=== PATIENT | female | born 1985 | race American Indian/Alaskan Native ===

== ENCOUNTER 2017-06-24 19:09 | Emergency (ER) | payer MEDICAID ==
[2017-06-24 19:20] VITALS: BP 171/112
[2017-06-24] MEDS ORDERED: TYLENOL ONE (19:28)
[2017-06-24] MEDS ORDERED: TYLENOL PO ONE (19:31)
[2017-06-24 19:59] LABS: Hematocrit 33.3 % (30.3-42.9); Hemoglobin 10.1 gm/dl (10.1-14.3); Mean Corpuscular HGB Conc 30 % (30-34); Mean Corpuscular Volume 77 fl (79-97); Red Blood Count 4.32 M/mm3 (3.65-5.03); Red Cell Distribution Width 17.4 % (13.2-15.2); White Blood Count 10.5 K/mm3 (4.5-11.0)
[2017-06-24 20:00] LABS: Mean Corpuscular Hemoglobin 24 pg (28-32)
[2017-06-24 20:01] LABS: Platelet Count 103 K/mm3 (140-440)
[2017-06-24 20:07] LABS: Anion Gap 16 mmol/L; BUN/Creatinine Ratio 22; Blood Urea Nitrogen 11 mg/dL (7-17); Calcium 8.9 mg/dL (8.4-10.2); Carbon Dioxide 21 mmol/L (22-30); Chloride 97.1 mmol/L (98-107); Glucose 148 mg/dL (65-100); Potassium 4.3 mmol/L (3.6-5.0); Sodium 130 mmol/L (137-145)
[2017-06-24 23:11] LABS: Bacteria,Urine 1+ /HPF (Negative); Bilirubin,Urine NEG (Negative); Blood,Urine MOD (Negative); Ketones,Urine NEG (Negative); Leukocyte Esterase,Urine SM (Negative); Mucus,Urine 3+ /HPF; Nitrite,Urine NEG (Negative); Urobilinogen,Urine < 2.0 mg/dL (<2.0)
== END 2017-06-24 22:11 | disposition left against medical advice (07) ==
LOC: ED 19:09
DX: S01.81XA Laceration without foreign body of other part of head, initial encounter (principal); M54.2 Cervicalgia; Z53.21 Procedure and treatment not carried out due to patient leaving prior to being seen by health care provider
CPT/HCPCS: 36415; 80048; 81001; 81025; 85027

== ENCOUNTER 2020-09-10 17:40 | Inpatient (IN) | payer MEDICAID ==
[2020-09-10] MEDS ORDERED: LACTATED RINGERS 1,000 ML ONE (19:56)
[2020-09-10] MEDS ORDERED: MAGNESIUM SULFATE 4 GM/100 ML BAG IV ONE ×2 (19:56→20:55)
[2020-09-10] MEDS ORDERED: MAGNESIUM SULFATE 40GM/1000ML 40 GM/1,000 ML BAG IV ONE (19:56)
[2020-09-10] MEDS: hydrALAZINE 20 MG/1 ML INJ IV PRN ×2 (20:17→21:05)
[2020-09-10] MEDS: LACTATED RINGERS 1,000 ML IV SCH (20:17)
[2020-09-10] MEDS: BETAMET ACET/BETAMET NA PH 6 MG/ML INJ 5 ML MDV IM SCH (20:18)
[2020-09-10] MEDS: MAGNESIUM SULFATE 40GM/1000ML 40 GM/1,000 ML BAG IV SCH (20:42)
[2020-09-10 22:00] LABS: Basophils % (Auto) 0.2 % (0.0-1.8); Eosinophils # (Auto) 0.1 K/mm3 (0.0-0.4); Eosinophils % (Auto) 0.5 % (0.0-4.3); Hematocrit 35.6 % (30.3-42.9); Hemoglobin 11.6 gm/dl (10.1-14.3); Lymphocytes # (Auto) 2.3 K/mm3 (1.2-5.4); Lymphocytes % (Auto) 21.6 % (13.4-35.0); Mean Corpuscular HGB Conc 33 % (30-34); Mean Corpuscular Volume 85 fl (79-97); Monocytes # (Auto) 0.6 K/mm3 (0.0-0.8); Monocytes % (Auto) 5.2 % (0.0-7.3); Platelet Count 181 K/mm3 (140-440); Red Blood Count 4.19 M/mm3 (3.65-5.03)
[2020-09-10 22:43] LABS: Alanine Aminotransferase 7 units/L (7-56); Uric Acid 4.4 mg/dL (3.5-7.6)
[2020-09-11] MEDS: hydrALAZINE 20 MG/1 ML INJ IV PRN ×3 (00:18→21:13)
[2020-09-11] MEDS ORDERED: ACETAMINOPHEN 325 MG TAB PO ONE (03:15)
--- NOTE | 2020-09-11 08:25 | History and Physical Report ---
History of Present Illness Date of examination: 09/11/20 Date of admission: 09/10/20 19:45 Chief complaint: Sent from [facility] for elevated BP History of present illness: Pt is a 35 yo at 29w1d EGA who presents per [facility] for r/o preeclampsia. She had severe range BP at [facility] yesterday, and has been receiving magnesium sulfate infusion and undergoing a 24 hour urine collection. She received rescue Hydralazine overnight. She denied headache yesterday, but now reports headache due to hunger. She denies scotomata, RUQ pain, or upper extremity swelling. She has received care with [facility]. Her course has been complicated by Chlamydia with negative ORTIZ, and anaphylaxis caused by [employer] chicken noodle soup 3 weeks ago. She has a history of preeclampsia with her previous (twins). She reports positive movement and denies LOF, contractions, or vaginal bleeding. 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) Family/Genetic History: diabetes Social history: lives with family (partnered) - Obstetrical History Expected Date of Delivery: 11/26/20 Actual Gestation: 29 Week(s) 1 Day(s) : 5 Para: 1 (twins) Hx # Term Pregnancies: 1 Number of Pregnancies: 0 Spontaneous Abortions: 0 Induced : 3 Number of Living Children: 2 Medications and Allergies Allergies Allergy/AdvReac Type Severity Reaction Status Date / Time No Known Allergies Allergy Verified 09/05/13 15:49 Home Medications Medication Instructions Recorded Confirmed Last Taken Type Plus Tablet 1 tab PO DAILY 09/11/20 09/11/20 09/10/20 08:00 History Active Meds: Active Medications Betamethasone Acet/Betameth SodPhos (Betamet Acet/Betamet Na Ph 6 Mg/Ml Inj 5 Ml Mdv) 12 mg IM Q24H NEGRITA Stop: 09/11/20 20:01 Last Admin: 09/10/20 20:18 Dose: 12 mg Documented by: Hydralazine HCl (Hydralazine 20 Mg/1 Ml Inj) 5 mg IV Q30MIN PRN PRN Reason: Blood Pressure Last Admin: 09/11/20 00:18 Dose: 5 mg Documented by: Magnesium Sulfate (Magnesium Sulfate 40gm/1000ml) 40 gm in 1,000 mls @ 50 mls/hr IV DIRECT NEGRITA Last Admin: 09/10/20 20:42 Dose: 2 gm/hr, 50 mls/hr Documented by: Lactated Ringer's (Lactated Ringers) 1,000 mls @ 75 mls/hr IV DIRECT NEGRITA Last Admin: 09/10/20 20:17 Dose: 75 mls/hr Documented by: Multivitamins/Iron/Calcium ( [id number]-Dc Fumarate-Folic Acid Vit Tab) 1 each PO QDAY NEGRITA Review of Systems All systems: negative Ears, nose, mouth and throat: headache Cardiovascular: high blood pressure, no chest pain, no edema Respiratory: no shortness of breath Genitourinary: no vaginal bleeding, no leakage of fluid, no genital sores, no c ontractions - Vital Signs Vital signs: Vital Signs Pulse BP 88 182/102 09/10/20 18:28 09/10/20 18:28 Temp Pulse Resp BP Pulse Ox 98.9 F 104 H 20 168/88 89 09/11/20 06:37 09/11/20 08:15 09/11/20 06:37 09/11/20 08:01 09/11/20 08:15 - Physical Exam Abdomen: Positive: soft. Negative: distention, tenderness, guarding Uterus: Positive: enlarged (gravid) Extremities: Positive: normal - Obstetrical FHR: category 1 Uterine Contraction Monitor Mode: External Uterine Contraction Pattern: Absent Results Result Diagrams: 09/10/20 21:18 09/10/20 21:18 Abnormal lab results 09/10/20 09/10/20 09/11/20 Range/Units 21:18 21:18 03:31 Seg Neutrophils % 72.5 H (40.0-70.0) % Seg Neutrophils # 7.9 H (1.8-7.7) K/mm3 Creatinine 0.4 L (0.6-1.2) mg/dL Magnesium 4.70 H (1.7-2.3) mg/dL All other labs normal. Assessment and Plan A: 35 yo at 29w1d EGA Gestational hypertension, r/o preeclampsia P: Magnesium infusing Initiate Labetalol 100mg BID Continue 24 hour urine collection Closely monitor clinical status Carly Man MD aware of patient
[2020-09-11] MEDS: LACTATED RINGERS 1,000 ML IV SCH (09:14)
[2020-09-11] MEDS: PRENATAL VIT27-FE FUMARATE-FOLIC ACID VIT TAB PO SCH (09:15)
[2020-09-11] MEDS: ACETAMINOPHEN 325 MG TAB PO PRN ×2 (10:12→22:01)
--- NOTE | 2020-09-11 19:08 | Progress Note ---
Assessment and Plan 35 yo at 29w1d EGA Gestational hypertension, r/o preeclampsia - Patient Problems (1) Elevated blood pressure complicating , antepartum Onset Date: 09/05/13 Current Visit: No Status: Acute Plan to address problem: gHTN vs Preeclampsia -continue 24 h urine collection -continue mag -Beta 2 this pm -labetalol adjusted to 200 BID, continue to monitor Subjective - Subjective Interval history: Denies ARTHUR/RUQ pain/changes to vision. No new complaints. Objective - Vital Signs Vital Signs: Vital Signs - 12hr 09/11/20 09/11/20 09/11/20 07:08 07:10 07:13 Pulse Rate 96 H 96 H 96 H Blood Pressure 157/96 O2 Sat by Pulse 99 98 Oximetry 09/11/20 09/11/20 09/11/20 07:14 07:18 07:20 Pulse Rate 107 H 100 H Blood Pressure O2 Sat by Pulse 86 98 90 Oximetry 09/11/20 09/11/20 09/11/20 07:23 07:28 07:31 Pulse Rate 99 H 102 H 96 H Blood Pressure 157/91 O2 Sat by Pulse 97 98 Oximetry 09/11/20 09/11/20 09/11/20 07:33 07:37 07:38 Pulse Rate 98 H 97 H 97 H Blood Pressure O2 Sat by Pulse 98 94 97 Oximetry 09/11/20 09/11/20 09/11/20 07:43 07:48 07:49 Pulse Rate 94 H 96 H 97 H Blood Pressure O2 Sat by Pulse 88 97 87 Oximetry 09/11/20 09/11/20 09/11/20 07:53 07:57 07:59 Pulse Rate 95 H 97 H 96 H Blood Pressure O2 Sat by Pulse 98 93 94 Oximetry 09/11/20 09/11/20 09/11/20 08:01 08:02 08:05 Pulse Rate 100 H 94 H 94 H Blood Pressure 168/88 O2 Sat by Pulse 93 95 Oximetry 09/11/20 09/11/20 09/11/20 08:08 08:10 08:14 Pulse Rate 97 H 94 H Blood Pressure O2 Sat by Pulse 87 96 90 Oximetry 09/11/20 09/11/20 09/11/20 08:15 08:20 08:24 Pulse Rate 104 H 105 H 107 H Blood Pressure O2 Sat by Pulse 89 97 92 Oximetry 09/11/20 09/11/20 09/11/20 08:25 08:30 08:32 Pulse Rate 101 H 114 H 98 H Blood Pressure 149/90 O2 Sat by Pulse 95 90 Oximetry 09/11/20 09/11/20 09/11/20 08:35 08:40 08:45 Pulse Rate 92 H 93 H 88 Blood Pressure O2 Sat by Pulse 98 97 97 Oximetry 09/11/20 09/11/20 09/11/20 08:48 08:50 08:53 Pulse Rate 65 99 H 95 H Blood Pressure O2 Sat by Pulse 88 98 93 Oximetry 09/11/20 09/11/20 09/11/20 08:55 09:00 09:01 Pulse Rate 95 H 95 H 91 H Blood Pressure 153/95 O2 Sat by Pulse 97 94 Oximetry 09/11/20 09/11/20 09/11/20 09:05 09:10 09:11 Pulse Rate 90 91 H 86 Blood Pressure O2 Sat by Pulse 96 97 75 L Oximetry 09/11/20 09/11/20 09/11/20 09:14 09:15 09:16 Pulse Rate 96 H 95 H Blood Pressure 153/95 O2 Sat by Pulse 94 91 Oximetry 09/11/20 09/11/20 09/11/20 09:20 09:21 09:27 Pulse Rate 96 H 100 H Blood Pressure O2 Sat by Pulse 89 85 98 Oximetry 09/11/20 09/11/20 09/11/20 09:29 09:32 09:37 Pulse Rate 104 H 80 100 H Blood Pressure O2 Sat by Pulse 88 82 L 99 Oximetry 09/11/20 09/11/20 09/11/20 09:39 09:42 09:48 Pulse Rate 97 H 98 H 68 Blood Pressure O2 Sat by Pulse 92 98 79 L Oximetry 09/11/20 09/11/20 09/11/20 09:53 09:56 09:58 Pulse Rate 96 H 99 H 94 H Blood Pressure O2 Sat by Pulse 90 94 97 Oximetry 09/11/20 09/11/20 09/11/20 10:01 10:03 10:08 Pulse Rate 96 H 98 H 96 H Blood Pressure 140/90 O2 Sat by Pulse 85 93 Oximetry 02/17/21 02/17/21 02/17/21 10:13 10:14 10:18 Pulse Rate 98 H 97 H Blood Pressure O2 Sat by Pulse 91 81 L 86 Oximetry 09/11/20 09/11/20 09/11/20 10:19 10:23 10:28 Pulse Rate 97 H 98 H Blood Pressure O2 Sat by Pulse 86 96 97 Oximetry 09/11/20 09/11/20 09/11/20 10:33 10:38 10:43 Pulse Rate 91 H 88 90 Blood Pressure O2 Sat by Pulse 99 97 97 Oximetry 09/11/20 09/11/20 09/11/20 10:48 10:53 10:58 Pulse Rate 89 87 89 Blood Pressure O2 Sat by Pulse 97 97 97 Oximetry 09/11/20 09/11/20 09/11/20 11:01 11:03 11:08 Pulse Rate 92 H 88 91 H Blood Pressure 137/82 O2 Sat by Pulse 97 97 Oximetry 09/11/20 09/11/20 09/11/20 11:13 11:14 11:18 Pulse Rate 91 H 102 H 89 Blood Pressure O2 Sat by Pulse 97 90 97 Oximetry 09/11/20 09/11/20 09/11/20 11:23 11:28 11:33 Pulse Rate 91 H 89 90 Blood Pressure O2 Sat by Pulse 96 95 96 Oximetry 09/11/20 09/11/20 09/11/20 11:38 11:43 11:48 Pulse Rate 91 H 90 89 Blood Pressure O2 Sat by Pulse 96 95 95 Oximetry 09/11/20 09/11/20 09/11/20 11:53 11:58 12:01 Pulse Rate 99 H 98 H 100 H Blood Pressure 142/98 O2 Sat by Pulse 98 99 Oximetry 09/11/20 09/11/20 09/11/20 12:03 12:08 12:13 Pulse Rate 98 H 104 H 97 H Blood Pressure O2 Sat by Pulse 99 98 98 Oximetry 09/11/20 09/11/20 09/11/20 12:18 12:23 12:28 Pulse Rate 105 H 90 93 H Blood Pressure O2 Sat by Pulse 98 98 97 Oximetry 09/11/20 09/11/20 09/11/20 12:33 12:38 12:43 Pulse Rate 91 H 90 107 H Blood Pressure O2 Sat by Pulse 97 97 97 Oximetry 09/11/20 09/11/20 09/11/20 12:48 12:53 12:58 Pulse Rate 95 H 98 H 92 H Blood Pressure O2 Sat by Pulse 98 98 97 Oximetry 09/11/20 09/11/20 09/11/20 13:01 13:03 13:08 Pulse Rate 101 H 89 91 H Blood Pressure 130/82 O2 Sat by Pulse 97 98 Oximetry 09/11/20 09/11/20 09/11/20 13:13 13:18 13:23 Pulse Rate 91 H 92 H 91 H Blood Pressure O2 Sat by Pulse 97 97 97 Oximetry 09/11/20 09/11/20 09/11/20 13:25 13:28 13:33 Pulse Rate 105 H 90 89 Blood Pressure O2 Sat by Pulse 92 97 97 Oximetry 09/11/20 09/11/20 09/11/20 13:38 13:43 13:48 Pulse Rate 91 H 90 88 Blood Pressure O2 Sat by Pulse 97 97 97 Oximetry 09/11/20 09/11/20 09/11/20 13:53 13:58 14:01 Pulse Rate 91 H 90 92 H Blood Pressure 137/84 O2 Sat by Pulse 97 97 Oximetry 09/11/20 09/11/20 09/11/20 14:03 14:08 14:13 Pulse Rate 89 88 96 H Blood Pressure O2 Sat by Pulse 97 98 99 Oximetry 09/11/20 09/11/20 09/11/20 14:18 14:23 14:28 Pulse Rate 98 H 98 H 94 H Blood Pressure O2 Sat by Pulse 99 98 99 Oximetry 09/11/20 09/11/20 09/11/20 14:33 14:34 14:38 Pulse Rate 94 H 100 H 96 H Blood Pressure O2 Sat by Pulse 98 84 99 Oximetry 09/11/20 09/11/20 09/11/20 14:43 14:48 14:53 Pulse Rate 94 H 96 H 95 H Blood Pressure O2 Sat by Pulse 98 98 99 Oximetry 09/11/20 09/11/20 09/11/20 14:58 15:01 15:03 Pulse Rate 98 H 96 H 98 H Blood Pressure 140/89 O2 Sat by Pulse 100 99 Oximetry 09/11/20 09/11/20 09/11/20 15:08 15:13 15:18 Pulse Rate 96 H 99 H 94 H Blood Pressure O2 Sat by Pulse 98 98 99 Oximetry 09/11/20 09/11/20 09/11/20 15:23 15:28 15:33 Pulse Rate 96 H 94 H 92 H Blood Pressure O2 Sat by Pulse 99 99 99 Oximetry 09/11/20 09/11/20 09/11/20 15:38 15:43 15:48 Pulse Rate 93 H 94 H 92 H Blood Pressure O2 Sat by Pulse 98 99 98 Oximetry 09/11/20 09/11/20 09/11/20 15:53 15:58 16:01 Pulse Rate 94 H 103 H 89 Blood Pressure 158/94 O2 Sat by Pulse 97 99 Oximetry 09/11/20 09/11/20 09/11/20 16:03 16:08 16:12 Pulse Rate 92 H 105 H 69 Blood Pressure O2 Sat by Pulse 98 97 92 Oximetry 09/11/20 09/11/20 09/11/20 16:13 16:18 16:21 Pulse Rate 89 92 H 107 H Blood Pressure O2 Sat by Pulse 98 99 84 Oximetry 09/11/20 09/11/20 09/11/20 16:23 16:28 16:33 Pulse Rate 93 H 93 H 93 H Blood Pressure O2 Sat by Pulse 99 99 99 Oximetry 09/11/20 09/11/20 09/11/20 16:38 16:41 16:43 Pulse Rate 110 H 97 H 100 H Blood Pressure O2 Sat by Pulse 98 85 98 Oximetry 09/11/20 09/11/20 09/11/20 16:48 16:53 16:56 Pulse Rate 99 H 95 H 99 H Blood Pressure O2 Sat by Pulse 93 99 88 Oximetry 09/11/20 09/11/20 09/11/20 16:58 17:01 17:02 Pulse Rate 102 H 95 H 56 L Blood Pressure 161/88 O2 Sat by Pulse 92 88 Oximetry 09/11/20 09/11/20 09/11/20 17:03 17:08 17:09 Pulse Rate 83 99 H 64 Blood Pressure O2 Sat by Pulse 83 L 99 68 L Oximetry 09/11/20 09/11/20 09/11/20 17:10 17:13 17:16 Pulse Rate 95 H 109 H 84 Blood Pressure 159/87 O2 Sat by Pulse 99 85 Oximetry 09/11/20 09/11/20 09/11/20 17:18 17:22 17:23 Pulse Rate 118 H 83 Blood Pressure O2 Sat by Pulse 99 80 L 86 Oximetry 09/11/20 09/11/20 09/11/20 17:27 17:29 17:34 Pulse Rate 90 111 H 101 H Blood Pressure O2 Sat by Pulse 94 94 96 Oximetry 09/11/20 09/11/20 09/11/20 17:36 17:39 17:44 Pulse Rate 112 H 107 H 99 H Blood Pressure O2 Sat by Pulse 87 93 95 Oximetry 09/11/20 09/11/20 09/11/20 17:49 17:54 17:55 Pulse Rate 99 H 100 H 99 H Blood Pressure O2 Sat by Pulse 96 96 89 Oximetry 09/11/20 09/11/20 09/11/20 17:59 18:04 18:06 Pulse Rate 104 H 100 H 104 H Blood Pressure O2 Sat by Pulse 95 96 93 Oximetry 09/11/20 09/11/20 09/11/20 18:09 18:11 18:14 Pulse Rate 103 H 101 H 102 H Blood Pressure O2 Sat by Pulse 96 94 90 Oximetry 09/11/20 09/11/20 09/11/20 18:15 18:17 18:19 Pulse Rate 101 H 105 H 99 H Blood Pressure 162/100 O2 Sat by Pulse 93 91 Oximetry 09/11/20 09/11/20 09/11/20 18:21 18:24 18:26 Pulse Rate 97 H 99 H 97 H Blood Pressure 152/102 149/92 O2 Sat by Pulse 93 Oximetry 09/11/20 09/11/20 09/11/20 18:29 18:31 18:34 Pulse Rate 87 94 H 99 H Blood Pressure 157/100 O2 Sat by Pulse 82 L 92 Oximetry 09/11/20 09/11/20 09/11/20 18:36 18:39 18:41 Pulse Rate 97 H 104 H 97 H Blood Pressure 151/96 158/98 O2 Sat by Pulse 91 95 94 Oximetry 09/11/20 09/11/20 09/11/20 18:44 18:46 18:49 Pulse Rate 95 H 93 H 100 H Blood Pressure 156/102 O2 Sat by Pulse 95 97 Oximetry 09/11/20 09/11/20 09/11/20 18:51 18:54 18:56 Pulse Rate 96 H 97 H 102 H Blood Pressure 159/105 153/100 O2 Sat by Pulse 94 95 94 Oximetry 09/11/20 09/11/20 09/11/20 18:59 19:01 19:04 Pulse Rate 97 H 108 H 102 H Blood Pressure 151/90 151/90 O2 Sat by Pulse 96 93 97 Oximetry - Exam Breasts: deferred Cardiovascular: Regular rate Lungs: Clear to auscultation Abdomen: Present: normal appearance Uterus: Present: normal FHR: category 1 Uterine Contraction Pattern: Absent - Labs Labs: Abnormal Labs 09/10/20 09/10/20 09/11/20 21:18 21:18 03:31 Seg Neutrophils % 72.5 H Seg Neutrophils # 7.9 H Creatinine 0.4 L Magnesium 4.70 H 09/11/20 09:24 Seg Neutrophils % Seg Neutrophils # Creatinine Magnesium 5.40 H Laboratory Results - last 24 hr 09/10/20 09/10/20 09/11/20 21:18 21:18 03:31 WBC 10.9 RBC 4.19 Hgb 11.6 Hct 35.6 MCV 85 MCH 28 MCHC 33 RDW 15.0 Plt Count 181 Lymph % (Auto) 21.6 [place] % (Auto) 5.2 Eos % (Auto) 0.5 Baso % (Auto) 0.2 Lymph # (Auto) 2.3 [place] # (Auto) 0.6 Eos # (Auto) 0.1 Baso # (Auto) 0.0 Seg Neutrophils % 72.5 H Seg Neutrophils # 7.9 H Creatinine 0.4 L Estimated GFR > 60 Uric Acid 4.4 Magnesium 4.70 H AST 13 ALT 7 Coronavirus (PCR) Blood Type Antibody Screen 09/11/20 09/11/20 09/11/20 03:31 09:20 09:24 WBC RBC Hgb Hct MCV MCH MCHC RDW Plt Count Lymph % (Auto) [place] % (Auto) Eos % (Auto) Baso % (Auto) Lymph # (Auto) [place] # (Auto) Eos # (Auto) Baso # (Auto) Seg Neutrophils % Seg Neutrophils # Creatinine Estimated GFR Uric Acid Magnesium 5.40 H AST ALT Coronavirus (PCR) Negative Blood Type A POSITIVE Antibody Screen Negative
[2020-09-11] MEDS: BETAMET ACET/BETAMET NA PH 6 MG/ML INJ 5 ML MDV IM SCH (21:14)
[2020-09-12] MEDS: ACETAMINOPHEN 325 MG TAB PO PRN ×3 (06:18→19:18)
[2020-09-12] MEDS: PRENATAL VIT27-FE FUMARATE-FOLIC ACID VIT TAB PO SCH (10:30)
[2020-09-12] MEDS: MAGNESIUM SULFATE 40GM/1000ML 40 GM/1,000 ML BAG IV SCH (12:02)
[2020-09-12] MEDS: LACTATED RINGERS 1,000 ML IV SCH (12:03)
--- NOTE | 2020-09-12 13:11 | Consultation ---
History of Present Illness Consult date: 09/12/20 Requesting physician: ERIWN BARROSO Reason for consult: gestational hypertension History of present illness: As you are aware, this is a 35-year-old para 1032 who is currently at 29 weeks 2 day gestation based on an GLADYS of 12/01/20 . This is a patient that has NO KNOWN history of chronic hypertension. Patient previously presented to [facility] on September 10, 2020 and was noted to have elevated blood pressures at 157/105. Patient was referred to [facility] to rule out gestational hypertension Based on her gestational age we would recommend steroids and magnesium sulfate it blood pressure remains elevated for eclampsia prophylaxis.. CURRENT PRESENTATION: Patient was hospitalized with elevated blood pressure however she did not have complaints of headache and dizziness. On presentation she had elevated blood pressure have been labile (see below) Her previous 24 hour urine is NOT AVAILABLE. Her P/C ratio NOT AVAILABLE. Her current 24 hour urine is PENDING. (due at 9 PM). Presently, she DENIES headache, dizziness or blurred vision. PAST OBSTETRICAL HISTORY: See report in patients chart. 2014: Twins at term (37 weeks) complicated by preeclampsia. BW-A: 5 pounds BW-B: 6 pounds. VTOP x 3 PAST MEDICAL HISTORY: Patient DENIES hypertension, diabetes or asthma . PHYSICAL EXAM FINDINGS: Vitals: BP as listed, pulse regular, respiration-normal General appearance: No apparent distress and easily conversant Lungs: Clear to auscultation Cardiovascular: regular rate and rhytym, Abdomen: Gravid, soft, nontender, no palpable organomegaly Extremities: No cyanosis and no edema. [facility] ULTRASOUND: See report in chart. [facility] ULTRASOUND 09/10/20 EFW 1188 g (2 lbs. 10 oz., 34th percentile,) Biophysical profile 03/02 ADMISSION BLOOD PRESSURE: 154/105 RECENT BLOOD PRESSURE VALUES: 137/80, 125/74 CURRENT MEDICATIONS: Betamethasone (suggested) magnesium sulfate (suggested) AVAILABLE LABS: WBC: 10.9 HGB: 11.6 HCT: 35.6 PLT: 181 AST: 13 ALT: 7 Most recent 24 hour urine : PENDING. Past History Past Medical History: other (preeclampsia) Past Surgical History: other (ankle surgery) BOOKY History: chlamydia (this , negative ORTIZ) Family/Genetic History: diabetes - Obstetrical History : 5 Medications and Allergies Allergies Allergy/AdvReac Type Severity Reaction Status Date / Time No Known Allergies Allergy Verified 09/05/13 15:49 Home Medications Medication Instructions Recorded Confirmed Last Taken Type Plus Tablet 1 tab PO DAILY 09/11/20 09/11/20 09/10/20 08:00 History Active Meds: Active Medications Acetaminophen (Acetaminophen 325 Mg Tab) 650 mg PO Q6H PRN PRN Reason: Pain, Mild (1-3) Last Admin: 09/12/20 06:18 Dose: 650 mg Documented by: Hydralazine HCl (Hydralazine 20 Mg/1 Ml Inj) 5 mg IV Q30MIN PRN PRN Reason: Blood Pressure Last Admin: 09/11/20 21:13 Dose: 5 mg Documented by: Magnesium Sulfate (Magnesium Sulfate 40gm/1000ml) 40 gm in 1,000 mls @ 50 mls/hr IV DIRECT NEGRITA Last Admin: 09/12/20 12:02 Dose: 2 gm/hr, 50 mls/hr Documented by: Lactated Ringer's (Lactated Ringers) 1,000 mls @ 75 mls/hr IV DIRECT NEGRITA Last Admin: 09/12/20 12:03 Dose: 75 mls/hr Documented by: Labetalol HCl (Labetalol 100 Mg Tab) 300 mg PO BID [facility] Last Admin: 09/12/20 10:30 Dose: 300 mg Documented by: Multivitamins/Iron/Calcium ( [id number] Fumarate-Folic Acid Vit Tab) 1 each PO QDAY [facility] Last Admin: 09/12/20 10:30 Dose: 1 each Documented by: - Vital Signs Vital signs: Vital Signs Pulse BP 88 182/102 09/10/20 18:28 09/10/20 18:28 Temp Pulse Resp BP Pulse Ox 98.4 F 82 16 128/76 97 09/11/20 19:01 09/12/20 13:07 09/11/20 19:01 09/12/20 12:52 09/12/20 13:07 Results Result Diagrams: 09/10/20 21:18 09/10/20 21:18 Abnormal lab results 09/12/20 Range/Units 09:44 Magnesium 5.70 H (1.7-2.3) mg/dL All other labs normal. Assessment and Plan ASSESSMENT IUP at 28 weeks 4 day gestation. Currently admitted with gestational hypertension Admitted with elevated blood pressure without headache. 24 hour urine PENDING. Improved blood pressure on bed rest. We recommend delivery at 37 weeks or earlier based on clinical parameters RECOMMENDATIONS: 1. We would recommend continued inpatient management for this patient. 2. I reviewed todays ultrasound. 3. Follow-up her current 24 hour urine. 4. We agree with magnesium sulfate for neuroprotection. 5. Steroids for lung maturity have been given during last visit. 6. Please facilitate a neonatology consultation. 7. At present; there is NO indication for delivery; however, I would monitor closely for the signs and symptoms of severe preeclampsia noted below. 8. At 28+ weeks gestation; it would appear that there is limited benefit to an expectant management protocol to prolong gestation in order to improve outcome without increasing maternal morbidity. 9. In a patient with MILD preeclampsia we recommend DELIVERY at 37 weeks. 10. In a patient with SEVERE preeclampsia we recommend DELIVERY either AT DIAGNOSIS or at 34 weeks gestation. ? Reference: REFERENCE: Medically indicated late- and early-term deliveries. Committee Opinion No. [id number]. [employer]. Obstet Gynecol 2013;121:01650. 11. The indications for discontinuation of expectant management and DELIVERY in this patient would include ANY of the following: heart rate abnormalities, (ie, bradycardia , repetitive late or variable decelerations) Significant new onset proteinuria Thrombocytopenia Hemolysis, Elevation in liver function tests Blood pressure that is very labile or poorly controlled with reasonable doses of intravenous labetalol Symptoms of severe pre-eclampsia epigastric discomfort, headache, dizzine ss, blurred vision, RUQ pain, seizure. Standard obstetrical indications 12. If is conceivable; that if her 24 hour urine is completed, and she remains asymptomatic and normotensive that she may be a candidate for discharge home and outpatient follow-up until ~ 37 weeks. Thank you for allowing us to participate in the care of this patient. We look forward to the opportunity to assist in her continued management. If you have any questions, we may be reached [phone]. Daryl Richey M.D
[2020-09-12 13:50] LABS: Creatinine,Urine 36.5 mg/dL (0.1-20.0)
[2020-09-13] MEDS: LACTATED RINGERS 1,000 ML IV SCH (01:07)
[2020-09-13] MEDS: ACETAMINOPHEN 325 MG TAB PO PRN (01:27)
--- NOTE | 2020-09-13 07:33 | Progress Note ---
Assessment and Plan A: IUP at 29w3d Preeclampsia without severe features; blood pressures stable on labetalol 300 mg PO BID Morbid Obesity P: Plan to discharge patient home with follow up next week in office and with M. Subjective - Subjective Date of service: 09/13/20 Principal diagnosis: IUP at 29w3d, Rule out preeclampsia Interval history: Pt without complaints overnight. 24 hour total urine protein 1575 mg confirming diagnosis of preeclampsia without severe features at this time. Patient reports: movement normal, no new complaints, no loss of fluid, no vaginal bleeding, no contractions Objective - Vital Signs Vital Signs: Vital Signs - 12hr 09/12/20 09/12/20 09/12/20 19:36 19:40 19:41 Temperature 98.7 F Pulse Rate 87 92 H 87 Respiratory 16 Rate Blood Pressure 138/88 Blood Pressure 138/88 [Left] O2 Sat by Pulse 98 98 Oximetry 09/12/20 09/12/20 09/12/20 19:42 19:46 19:51 Temperature Pulse Rate 89 89 Respiratory 16 Rate Blood Pressure Blood Pressure [Left] O2 Sat by Pulse 97 98 96 Oximetry 09/12/20 09/12/20 09/12/20 19:56 20:01 20:06 Temperature Pulse Rate 88 87 87 Respiratory Rate Blood Pressure Blood Pressure [Left] O2 Sat by Pulse 98 97 97 Oximetry 09/12/20 09/12/20 09/12/20 20:11 20:16 20:21 Temperature Pulse Rate 86 88 82 Respiratory Rate Blood Pressure Blood Pressure [Left] O2 Sat by Pulse 97 97 96 Oximetry 09/12/20 09/12/20 09/12/20 20:22 20:26 20:31 Temperature Pulse Rate 81 84 84 Respiratory Rate Blood Pressure 154/89 Blood Pressure [Left] O2 Sat by Pulse 96 96 Oximetry 09/12/20 09/12/20 09/12/20 20:36 20:41 20:46 Temperature Pulse Rate 83 86 91 H Respiratory Rate Blood Pressure Blood Pressure [Left] O2 Sat by Pulse 96 96 97 Oximetry 09/12/20 09/12/20 09/12/20 20:51 20:52 20:56 Temperature Pulse Rate 87 85 91 H Respiratory Rate Blood Pressure 156/85 Blood Pressure [Left] O2 Sat by Pulse 97 98 Oximetry 09/12/20 09/12/20 09/12/20 21:01 21:06 21:11 Temperature Pulse Rate 85 86 87 Respiratory Rate Blood Pressure Blood Pressure [Left] O2 Sat by Pulse 98 98 98 Oximetry 09/12/20 09/12/20 09/12/20 21:16 21:53 21:59 Temperature Pulse Rate 89 85 85 Respiratory Rate Blood Pressure 158/97 158/97 Blood Pressure [Left] O2 Sat by Pulse 98 Oximetry 09/12/20 09/12/20 09/12/20 22:13 22:18 22:22 Temperature Pulse Rate 87 96 H 87 Respiratory Rate Blood Pressure 140/83 Blood Pressure [Left] O2 Sat by Pulse 98 99 Oximetry 09/12/20 09/12/20 09/12/20 22:23 22:28 22:33 Temperature Pulse Rate 86 88 89 Respiratory Rate Blood Pressure Blood Pressure [Left] O2 Sat by Pulse 98 99 99 Oximetry 09/12/20 09/12/20 09/12/20 22:38 22:43 22:48 Temperature Pulse Rate 91 H 93 H 91 H Respiratory Rate Blood Pressure Blood Pressure [Left] O2 Sat by Pulse 98 98 98 Oximetry 09/12/20 09/12/20 09/13/20 23:22 23:52 00:22 Temperature Pulse Rate 79 92 H 88 Respiratory Rate Blood Pressure 138/85 136/94 150/89 Blood Pressure [Left] O2 Sat by Pulse Oximetry 09/13/20 09/13/20 09/13/20 00:52 01:22 01:52 Temperature Pulse Rate 87 90 86 Respiratory Rate Blood Pressure 143/94 148/90 139/83 Blood Pressure [Left] O2 Sat by Pulse Oximetry 09/13/20 09/13/20 09/13/20 02:22 02:52 03:00 Temperature 98.5 F Pulse Rate 91 H 85 Respiratory Rate Blood Pressure 144/87 140/85 Blood Pressure [Left] O2 Sat by Pulse Oximetry 09/13/20 09/13/20 09/13/20 03:22 03:52 04:22 Temperature Pulse Rate 79 87 88 Respiratory Rate Blood Pressure 134/77 127/74 124/75 Blood Pressure [Left] O2 Sat by Pulse Oximetry 09/13/20 09/13/20 09/13/20 04:52 05:22 05:52 Temperature Pulse Rate 83 77 84 Respiratory Rate Blood Pressure 125/78 132/76 138/75 Blood Pressure [Left] O2 Sat by Pulse Oximetry 09/13/20 09/13/20 09/13/20 06:22 06:52 07:22 Temperature Pulse Rate 77 77 88 Respiratory Rate Blood Pressure 142/87 126/67 147/90 Blood Pressure [Left] O2 Sat by Pulse Oximetry 09/13/20 07:31 Temperature Pulse Rate 92 H Respiratory Rate Blood Pressure 167/97 Blood Pressure [Left] O2 Sat by Pulse Oximetry - Exam Breasts: deferred Abdomen: Present: soft (obese, gravid ) Uterus: Present: normal (gravid ) FHR: auscultation normal Uterine Contraction Monitor Mode: External Uterine Contraction Pattern: Absent Uterine Tone Measurement Phase: Resting - Labs Labs: Abnormal Labs 09/10/20 09/10/20 09/10/20 21:18 21:18 Unknown Seg Neutrophils % 72.5 H Seg Neutrophils # 7.9 H Creatinine 0.4 L Magnesium Urine Creatinine 36.5 H Ur Total Protein 24 Hr Urine Total Protein 09/11/20 09/11/20 09/12/20 03:31 09:24 09:00 Seg Neutrophils % Seg Neutrophils # Creatinine Magnesium 4.70 H 5.40 H Urine Creatinine Ur Total Protein 24 Hr 1575.00 H Urine Total Protein 21 H 09/12/20 09:44 Seg Neutrophils % Seg Neutrophils # Creatinine Magnesium 5.70 H Urine Creatinine Ur Total Protein 24 Hr Urine Total Protein Laboratory Results - last 24 hr 09/10/20 09/12/20 09/12/20 Unknown 09:00 09:44 Magnesium 5.70 H Urine Total Volume 7500 7500 Urine Creatinine 36.5 H Height (in) 67.0 Weight (lb) 285.0 Creatinine Clearance 350 Ur Total Protein 24 Hr 1575.00 H Urine Total Protein 21 H
[2020-09-13 07:37] VITALS: BP 144/80
--- NOTE | 2020-09-13 07:40 | Discharge Summary ---
Providers - Providers Date of Admission: 09/10/20 19:45 Date of discharge: 09/13/20 Attending physician: HUSSEIN BENAVIDEZ 09/11/20 16:44 Consult to Physician [CONS] Routine Comment: Consulting Provider: ARIADNA WILSON Physician Instructions: Reason For Exam: Preeclampsia, Primary care physician: HUSSEIN BENAVIDEZ Hospitalization Reason for admission: other (elevated blood pressure ) Procedure details: IV Magnesium Sulfate Betamethasone 12 mg IM x 2 doses Initiation of Labetalol Discharge diagnosis: other (IUP at 29 wks, preeclampsia ) Hospital course: Pt was admitted with elevated blood pressures for blood pressure monitoring and 24 hour urine collection. She received IV Magnesium Sulfate for seizure prophylaxis for 48 hours as well as two doses of betamethasone during her hospitalization. A 24 hr urine total protein was collected revealing 1575 mg of protein, confirming a diagnosis of preeclampsia. She has been started on Labetalol 300 mg BID and will follow up in office next week. Condition at discharge: Stable Disposition: [id number] TO HOME OR SELFCARE - Discharge Diagnoses (1) Status: Acute Qualifiers: Weeks of gestation: 29 weeks Qualified Code(s): Z3A.29 - 29 weeks gestation of (2) Pre-eclampsia affecting , antepartum Status: Acute (3) Morbid obesity Status: Acute Plan - Discharge Medications Prescriptions: Labetalol HCl [Labetalol 300mg TAB] 300 mg PO BID #60 tablet - Provider Discharge Summary Activity: routine Diet: routine Additional instructions: [] Smoking cessation referral if applicable(refer to patient education folder for contact #) [] Refer to [facility]'s [facility] Booklet Call your doctor immediately for: * Fever > 100.5 * Heavy vaginal bleeding ( >1 pad per hour) * Severe persistent headache * Shortness of breath * Reddened, hot, painful area to leg or breast * Drainage or odor from incision. * Keep incision clean and dry at all times and follow doctor's instructions regarding bathing/showering - Follow up plan Follow up: MARGAUX PRADO MD [Staff Physician] - 7 Days HALEY REEVES MD [Staff Physician] - 7 Days
== END 2020-09-13 08:12 | disposition home or self-care (01) | DRG 781 ==
LOC: TRG 17:40 → APU 17:42 → LD 19:37 → TRG 19:41 → LD 19:45
PROVIDERS: ADMIT Obstetrics & Gynecology; ATTEND Obstetrics & Gynecology
DX: O14.03 Mild to moderate pre-eclampsia, third trimester (principal); O13.3 Gestational [pregnancy-induced] hypertension without significant proteinuria, third trimester; O99.213 Obesity complicating pregnancy, third trimester; Z3A.29 29 weeks gestation of pregnancy; Z20.822 Contact with and (suspected) exposure to COVID-19; E66.01 Morbid (severe) obesity due to excess calories
CPT/HCPCS: 36415; 82565; 82570; 82575; 83735; 84156; 84450; 84460; 84550; 85025; 86850; 86900; 86901; G0378; J0360; J0702; J3475; J7120; U0003

== ENCOUNTER 2020-09-24 15:26 | Inpatient (IN) | payer MEDICAID ==
[2020-09-24 17:16] LABS: Hematocrit 36.4 % (30.3-42.9); Hemoglobin 11.8 gm/dl (10.1-14.3); Mean Corpuscular HGB Conc 32 % (30-34); Mean Corpuscular Volume 85 fl (79-97); Platelet Count 191 K/mm3 (140-440); Red Blood Count 4.28 M/mm3 (3.65-5.03); Red Cell Distribution Width 15.6 % (13.2-15.2)
[2020-09-24 17:30] LABS: Bacteria,Urine 2+ /HPF (Negative); Bilirubin,Urine NEG (Negative); Blood,Urine SM (Negative); Color,Urine Yellow (Yellow); Mucus,Urine 3+ /HPF; Urobilinogen,Urine < 2.0 mg/dL (<2.0)
[2020-09-24 17:37] LABS: Alanine Aminotransferase 8 units/L (7-56); Uric Acid 5.8 mg/dL (3.5-7.6)
[2020-09-24] MEDS ORDERED: LACTATED RINGERS 1,000 ML IV ONE (18:51)
[2020-09-24] MEDS ORDERED: hydrALAZINE 20 MG/1 ML INJ IV ONE (18:52)
[2020-09-24] MEDS ORDERED: SODIUM CHLORIDE NASAL SPRAY 44ML NS PRN (19:02)
[2020-09-24] MEDS ORDERED: DOCUSATE SODIUM 100 MG CAP PO PRN (19:02)
[2020-09-24] MEDS ORDERED: ONDANSETRON 4 MG/2 ML INJ IV PRN (19:02)
[2020-09-24] MEDS ORDERED: SIMETHICONE 80 MG CHEW TAB PO PRN (19:02)
[2020-09-24] MEDS: hydrALAZINE 20 MG/1 ML INJ IV PRN ×3 (19:40→22:11)
[2020-09-24] MEDS ORDERED: MAGNESIUM SULFATE 4 GM/100 ML BAG IV ONE (20:02)
[2020-09-24] MEDS ORDERED: CALCIUM GLUCONATE 1000 MG/10 ML INJ IV ONE (20:02)
[2020-09-24] MEDS: MAGNESIUM SULFATE 40GM/1000ML 40 GM/1,000 ML BAG IV SCH (21:56)
[2020-09-24] MEDS: ACETAMINOPHEN 325 MG TAB PO PRN (22:02)
--- NOTE | 2020-09-24 23:49 | Ultrasound Report ---
ULTRASOUND OBSTETRIC INDICATION / CLINICAL INFORMATION: IUP at 31 wks, preeclampsia, well being. TECHNIQUE: Transabdominal. COMPARISON: None available. FINDINGS: There is a single intrauterine . BREATHING MOVEMENT = 0 GROSS BODY MOVEMENT = 2 TONE = 2 QUALITATIVE AMNIOTIC FLUID VOLUME = 2 TOTAL BIOPHYSICAL SCORE = 6/8 Biparietal Diameter = 7.0 cm = 28.1 weeks.days Head Circumference = 26.7 cm = 29.1 weeks.days Abdominal Circumference = 22.0 cm = 26.3 weeks.days Femur Length = 5.4 cm = 28.3 weeks.days Average Ultrasound Age (AUA) = 28.0 weeks.days Heart Rate: 145 beats per minute. Estimated Weight in grams (if calculated): 1085 Position: cephalic. Cervix: closed. Length in cm (if measured): Placenta: posterior and free of the os. Amniotic Fluid Volume: normal Amniotic Fluid Index (ROOPA) in cm (if calculated): 9.7. Maternal Adnexa: No significant abnormality. IMPRESSION: 1. Single, living intrauterine with estimated sonographic age of 28.0 weeks.days 2. Total biophysical profile score of 6 out of 8 due to scoring 0 on breathing movements. Signer Name: David Sanford MD Signed: 09/24/2020 11:45 PM Workstation Name: [id number]
[2020-09-25] MEDS: ACETAMINOPHEN 325 MG TAB PO PRN (02:18)
[2020-09-25] MEDS ORDERED: BETAMET ACET/BETAMET NA PH 6 MG/ML INJ 5 ML MDV IM ONE (03:42)
--- NOTE | 2020-09-25 04:46 | History and Physical Report ---
History of Present Illness Date of examination: 09/25/20 Chief complaint: Pt is a History of present illness: Pt is a 35 year old GLADYS 11/26/20 at 31w1d who presents from the office with elevated blood pressures. She denies headache, blurry vision, RUQ pain and scotomata on admission. She was admitted to the antepartum service from 09/10/20 to 09/13/20 for elevated blood pressures and was diagnosed with preeclampsia without severe features and started on Labetalol 300 mg BID. She has had care at [facility] with comanagement by [facility] secondary to preeclampsia and obesity complicate by chlamydia with negative test of cure and anaphylaxis caused by [employer] chicken noodle soup in July 2020. She has a h/o preeclampsia in her prior . She has no obstetric complaints. Despite taking her blood pressure medication 09/24/20 AM, her blood pressures on admission ranged from 150-190/90-110s. She was admitted for observation and started on magnesium sulfate for seizure prophylaxis. She began to complain of a headache once her magnesium sulfate was started, and reports she had a similar headache when she was admitted and placed on magnesium earlier this month. She reports light sensitivity as a component of this headache, and it reminds her of a migraine she once experienced. She also reports that she has only eaten one bagel yesterday morning, and a few parth crackers around midnight and feels that her hunger may be playing a role. 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 ) Family/Genetic History: diabetes Social history: no significant social history - Obstetrical History Expected Date of Delivery: 11/26/20 Actual Gestation: 31 Week(s) 1 Day(s) : 5 Para: 1 Hx # Term Pregnancies: 1 Number of Pregnancies: 0 Spontaneous Abortions: 0 Induced : 3 Number of Living Children: 2 (twin gestation ) Medications and Allergies Allergies Allergy/AdvReac Type Severity Reaction Status Date / Time No Known Allergies Allergy Verified 09/05/13 15:49 Home Medications Medication Instructions Recorded Confirmed Last Taken Type Plus Tablet 1 tab PO DAILY 09/11/20 09/11/20 09/10/20 08:00 History Labetalol HCl [Labetalol 300mg TAB] 300 mg PO BID #60 tablet 09/13/20 Unknown Rx Active Meds: Active Medications Acetaminophen (Acetaminophen 325 Mg Tab) 650 mg PO Q4H PRN PRN Reason: Pain MILD(1-3)/Fever >100.5/ARTHUR Last Admin: 09/25/20 02:18 Dose: 650 mg Documented by: Docusate Sodium (Docusate Sodium 100 Mg Cap) 100 mg PO Q12H PRN PRN Reason: Constipation Hydralazine HCl (Hydralazine 20 Mg/1 Ml Inj) 5 mg IV Q30MIN PRN PRN Reason: Hypertension Last Admin: 09/24/20 22:11 Dose: 5 mg Documented by: Lactated Ringer's (Lactated Ringers) 1,000 mls @ 75 mls/hr IV PRN ONE Stop: 09/25/20 08:10 Last Admin: 09/24/20 18:34 Dose: 75 mls/hr Documented by: Lactated Ringer's (Lactated Ringers) 1,000 mls @ 125 mls/hr IV DIRECT NEGRITA Magnesium Sulfate (Magnesium Sulfate 40gm/1000ml) 40 gm in 1,000 mls @ 50 mls/hr IV DIRECT NEGRITA Last Admin: 09/24/20 21:56 Dose: 2 gm/hr, 50 mls/hr Documented by: Labetalol HCl (Labetalol 200 Mg Tab) 400 mg PO BID NEGRITA Last Admin: 09/24/20 22:03 Dose: 400 mg Documented by: Multivitamins/Iron/Calcium ( [id number] Fumarate-Folic Acid Vit Tab) 1 each PO QDAY NEGRITA Ondansetron HCl (Ondansetron 4 Mg/2 Ml Inj) 4 mg IV Q6H PRN PRN Reason: Nausea And Vomiting Simethicone (Simethicone 80 Mg Chew Tab) 80 mg PO Q6H PRN PRN Reason: Gas pain Sodium Chloride (Sodium Chloride Nasal [place]er 44ml) 2 spray NS Q4H PRN PRN Reason: Congestion Review of Systems All systems: negative - Vital Signs Vital signs: Vital Signs Pulse BP 79 143/97 09/24/20 15:44 09/24/20 15:44 Temp Pulse Resp BP Pulse Ox 97.7 F 83 17 145/88 98 09/25/20 04:04 09/25/20 04:44 09/25/20 04:04 09/25/20 04:34 09/25/20 04:44 - Physical Exam Breasts: Positive: deferred Abdomen: Positive: soft (gravid, non-tender ) Uterus: Positive: enlarged (gravid ) Extremities: Negative: edema - Obstetrical FHR: category 2 Uterine Contraction Monitor Mode: External Uterine Contraction Pattern: Absent Uterine Tone Measurement Phase: Resting Results Result Diagrams: 09/24/20 17:07 09/24/20 17:07 Abnormal lab results 09/24/20 09/24/20 09/24/20 Range/Units 16:50 17:07 17:07 WBC 12.7 H (4.5-11.0) K/mm3 RDW 15.6 H (13.2-15.2) % Creatinine 0.5 L (0.6-1.2) mg/dL Magnesium (1.7-2.3) mg/dL Urine WBC (Auto) 7.0 H (0.0-6.0) /HPF 09/25/20 Range/Units 03:56 WBC (4.5-11.0) K/mm3 RDW (13.2-15.2) % Creatinine (0.6-1.2) mg/dL Magnesium 4.60 H (1.7-2.3) mg/dL Urine WBC (Auto) (0.0-6.0) /HPF All other labs normal. Assessment and Plan A: IUP at 31w1d Preeclampsia, now with headache that patient reports started only after magnesium initiation; currently on Labetalol 400 mg BID Obesity P: Continue magnesium sulfate Rescue dose of betamethasone administered After repeated pt requests, allow one meal then return to NPO status Trial of Fioricet MFM consult this morning Closely monitor maternal and status
[2020-09-25] MEDS: BUTALB/ACETAMINOPHEN/CAFFEINE TAB PO PRN ×2 (04:54→19:14)
[2020-09-25] MEDS: LACTATED RINGERS 1,000 ML IV SCH ×2 (08:52→17:03)
--- NOTE | 2020-09-25 09:53 | Consultation ---
History of Present Illness Consult date: 09/25/20 Requesting physician: ERWIN BARROSO History of present illness: Ms. Mayen is a 35 y/o GLADYS 11/26/20 GLADYS 31 1/ weeks followed for preeclampsia Sent in from OB's office with Elevated BP' [facility] in Severe Range 190/112, 176/114, at 2121 BP at 198/123 Has Received 4 doses of IV Hydralazine Denies ARTHUR's ( except when on Mg ) No Scotoma , No RUQ Pain Pos swelling hands and lower extremities Labetalol was increased from 300 to 400 BID Seen by [facility] ( only visit ) on 09/10/20 and sent to [facility] for Elevated BP's 24 Hour Prot on 09/12/20 1575mg/24hr Patient was sent home on Labetalol [facility] US 09/10/20 at 1188 grams 34% [facility] US 09/24/20 at 1085 grams - 0% , BPP 6/8 (-2 for breathing ) [facility] US 09/25/20 at 1200 grams - 2% , BPP 8/8 with Elevated Arterial Cord dopplers [facility] labs AST/ALT at 12/8 Plts at 191 Creat at .5 OB history VIP X 2 2014 Induced Vag at 37 weeks Twins M/M Preeclampsia No med, No C/D/D NKA No Surg No STD Past History Past Medical History: other (preeclampsia ) Past Surgical History: other (ankle surgery ) 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 ) Family/Genetic History: diabetes - Obstetrical History : 5 Medications and Allergies Allergies Allergy/AdvReac Type Severity Reaction Status Date / Time No Known Allergies Allergy Verified 09/05/13 15:49 Home Medications Medication Instructions Recorded Confirmed Last Taken Type Plus Tablet 1 tab PO DAILY 09/11/20 09/11/20 09/10/20 08:00 History Labetalol HCl [Labetalol 300mg TAB] 300 mg PO BID #60 tablet 09/13/20 Unknown Rx Active Meds: Active Medications Acetaminophen (Acetaminophen 325 Mg Tab) 650 mg PO Q4H PRN PRN Reason: Pain MILD(1-3)/Fever >100.5/ARTHUR Last Admin: 09/25/20 02:18 Dose: 650 mg Documented by: Acetaminophen/Butalbital/Caffeine (Butalb/Acetaminophen/Caffeine Tab) 2 tab PO Q4H PRN PRN Reason: Headache Last Admin: 09/25/20 04:54 Dose: 2 tab Documented by: Docusate Sodium (Docusate Sodium 100 Mg Cap) 100 mg PO Q12H PRN PRN Reason: Constipation Hydralazine HCl (Hydralazine 20 Mg/1 Ml Inj) 5 mg IV Q30MIN PRN PRN Reason: Hypertension Last Admin: 09/24/20 22:11 Dose: 5 mg Documented by: Lactated Ringer's (Lactated Ringers) 1,000 mls @ 125 mls/hr IV DIRECT NEGRITA Last Admin: 09/25/20 08:52 Dose: 75 mls/hr Documented by: Magnesium Sulfate (Magnesium Sulfate 40gm/1000ml) 40 gm in 1,000 mls @ 50 mls/hr IV DIRECT NEGRITA Last Admin: 09/24/20 21:56 Dose: 2 gm/hr, 50 mls/hr Documented by: Labetalol HCl (Labetalol 200 Mg Tab) 400 mg PO BID NEGRITA Last Admin: 09/24/20 22:03 Dose: 400 mg Documented by: Multivitamins/Iron/Calcium ( [id number] Fumarate-Folic Acid Vit Tab) 1 each PO QDAY [facility] Ondansetron HCl (Ondansetron 4 Mg/2 Ml Inj) 4 mg IV Q6H PRN PRN Reason: Nausea And Vomiting Simethicone (Simethicone 80 Mg Chew Tab) 80 mg PO Q6H PRN PRN Reason: Gas pain Sodium Chloride (Sodium Chloride Nasal [place] 44ml) 2 spray NS Q4H PRN PRN Reason: Congestion - Vital Signs Vital signs: Vital Signs Pulse BP 79 143/97 09/24/20 15:44 09/24/20 15:44 Temp Pulse Resp BP Pulse Ox 97.8 F 103 H 17 174/106 99 09/25/20 07:25 09/25/20 09:44 09/25/20 04:04 09/25/20 09:35 09/25/20 09:44 Results Result Diagrams: 09/24/20 17:07 09/24/20 17:07 Abnormal lab results 09/24/20 09/24/20 09/24/20 Range/Units 16:50 17:07 17:07 WBC 12.7 H (4.5-11.0) K/mm3 RDW 15.6 H (13.2-15.2) % Creatinine 0.5 L (0.6-1.2) mg/dL Magnesium (1.7-2.3) mg/dL Urine WBC (Auto) 7.0 H (0.0-6.0) /HPF 09/25/20 Range/Units 03:56 WBC (4.5-11.0) K/mm3 RDW (13.2-15.2) % Creatinine (0.6-1.2) mg/dL Magnesium 4.60 H (1.7-2.3) mg/dL Urine WBC (Auto) (0.0-6.0) /HPF All other labs normal. Assessment and Plan 1. 31 1/7 weeks IUP 2. Preeclampsia with Severe Features 3. Severe FGR with Elevated Arterial Cord Dopplers - No weight gain over 2 weeks 4. Prior H/O Preeclampsia in 2013 Recommendations 1. S/P Steroids 09/10/20 2. Mg for seizure prophylaxis and neuroprophylaxis 3. IV Hydralazine/Labetalol per protocol for BPs sys > 160 or hernandez > 110 4. Recommend delivery due to Severe FGR ( no weight gain over 2 weeks ) and Preeclampsia with Severe Features 5. Shared decision making with patient and aware benefits now of premature delivery outweigh continuing 6. NICU consult 7. May attempt Induction - ( if not tolerating labor would proceed with C/S )
[2020-09-25] MEDS: PRENATAL VIT27-FE FUMARATE-FOLIC ACID VIT TAB PO SCH (09:59)
[2020-09-25] MEDS: hydrALAZINE 20 MG/1 ML INJ IV PRN (10:14)
--- NOTE | 2020-09-25 10:16 | Ultrasound Report ---
Biophysical profile INDICATION: Preeclampsia, IUGR COMPARISON: 09/24/2020 FINDINGS: breathing movement: 2/2 movement: 2/2 posture and tone: 2/2 Qualitative amniotic fluid volume: 2/2 IMPRESSION: Total score for biophysical profile is 8/8 heart rate is 142 bpm Signer Name: Navjot Barker MD Signed: 09/25/2020 10:12 AM Workstation Name: [id number]
--- NOTE | 2020-09-25 10:16 | Ultrasound Report ---
ULTRASOUND OB VELOCIMETRY UMBILICAL ARTERY HISTORY: Preeclampsia, intrauterine growth restriction TECHNIQUE: Transabdominal imaging with color and spectral Doppler interrogation COMPARISON: No relevant comparison. FINDINGS: 3 segments of the umbilical cord were evaluated. heart rate measures 135 bpm. The S/D ratio average measures 4.77. The average resistive index measures 0.79. IMPRESSION: Elevated resistive indices in the umbilical cord. Signer Name: Chino Kramer Jr, MD Signed: 09/25/2020 10:12 AM Workstation Name: [id number]
[2020-09-25] MEDS ORDERED: DINOPROSTONE 10 MG VAG SUPP VG ONE (13:08)
--- NOTE | 2020-09-25 14:42 | Consultation ---
Consult Note - Parent Education I met with parent(s) and discussed the following:: Need for NICU admission, Poss ible need for intubation and surfactant or other resp support, Temperature regulation, Head ultrasounds to evaluate IVH, Eye exams for ROP screening, Possible need for IV fluids/TPN and IV antibiotics, Possible need for umbilical lines, Importance of providing breast milk & encouraged pumping aft delivery, Donor breast milk if baby meets criteria after , Slow feeding advancement and monitoring of tolerance. NG/OG feeds, Need to monitor for jaundice, Data for survival & survival without significant co-morbidities Parent(s) demonstrated understanding of all the information:: Yes Assessment and Plan - Assessment Gestation:: 31.1 Baby's gender: Female Baby's name: Lara Rodarte Additional Comment: Ms. Mayen is a 35 yo who was admitted from OB office with severe range elevated BPs. She was previously admitted in b 09/10/20- 09/13/20 with diagnosis of pre-eclampsia, started on labatelol and was discharged home. Fetus with severe growth restriction per perinatology and increased arterial cord dopplers with no weight gain in past 2 weeks. Perinatology consulted this am and recommend IOL if fetus will tolerate, and OR delivery if fetus does not tolerate IOL. All of mother's serologies are negative wi th immune rubella, she was treated for chlamydia in 03/2020 with a negative ORTIZ on 06/04/2020 after treatment. Ms. Mayen is currently on Magnesium sulfate for seizure prophylaxis and neuroprotection. She has received hydralazine x 4 and continues on her labetalol scheduled. She has been taking her PNV a well. She received betamethasone on 09/10-09/11 with a rescue dose again o 09/25/2020. BPP today as 03/02 with fetus measuring 28 weeks via US. Please do not hesitate to call team back if mother has any further questions regarding projected plan of care for her . - Plan Plan: Agree with Mag & steroids Will attend delivery Please call NICU with questions
--- NOTE | 2020-09-25 16:38 | Progress Note ---
Assessment and Plan IOL per APA recommendations Anticipate vaginal delivery - Patient Problems (1) Severe pre-eclampsia Current Visit: Yes Status: Acute Plan to address problem: Usg/imaging/APA recommendations reviewed -in setting of Preeclampsia with SF, will proceed with induction as recommended -Mag for seizure prophylaxis, no s/s of toxicity -continue po Labetalol, plan approved by APA, add IV antihypertensives prn -add PCN in active labor for GBS prophylaxis (2) Morbid obesity Current Visit: No Status: Acute (3) Current Visit: No Status: Acute Qualifiers: Weeks of gestation: 31 weeks Qualified Code(s): Z3A.31 - 31 weeks gestation of Plan to address problem: PNC: per [facility] reviewed Chlamydia + 05/14, ORTIZ neg -urine GC/CT ordered -OGTT not completed, consider accuchecks q 1-2h in active labor -GBS unknown add abx in active labor Subjective - Subjective Date of service: 09/25/20 Principal diagnosis: PreeEclampsia with SF Interval history: Patient evaluated by MFM. Headache now resolved. Denies RUQ pain or changes to vision. Patient reports: movement normal, no new complaints, no contractions Objective - Vital Signs Vital Signs: Vital Signs - 12hr 09/25/20 09/25/20 09/25/20 04:34 04:39 04:44 Temperature Pulse Rate 94 H 97 H 83 Blood Pressure 145/88 O2 Sat by Pulse 99 99 98 Oximetry 09/25/20 09/25/20 09/25/20 04:49 04:54 04:59 Temperature Pulse Rate 86 84 89 Blood Pressure O2 Sat by Pulse 99 98 98 Oximetry 09/25/20 09/25/20 09/25/20 05:04 05:09 05:14 Temperature Pulse Rate 82 85 86 Blood Pressure 162/92 O2 Sat by Pulse 98 98 97 Oximetry 09/25/20 09/25/20 09/25/20 05:19 05:24 05:29 Temperature Pulse Rate 86 84 90 Blood Pressure O2 Sat by Pulse 97 97 97 Oximetry 09/25/20 09/25/20 09/25/20 05:34 05:39 05:44 Temperature Pulse Rate 81 85 85 Blood Pressure 159/93 O2 Sat by Pulse 98 97 98 Oximetry 09/25/20 09/25/20 09/25/20 05:49 05:54 05:59 Temperature Pulse Rate 84 84 87 Blood Pressure O2 Sat by Pulse 98 98 98 Oximetry 09/25/20 09/25/20 09/25/20 06:04 06:09 06:14 Temperature Pulse Rate 82 84 83 Blood Pressure 136/81 O2 Sat by Pulse 97 98 98 Oximetry 09/25/20 09/25/20 09/25/20 06:19 06:24 06:29 Temperature Pulse Rate 86 89 94 H Blood Pressure O2 Sat by Pulse 98 97 99 Oximetry 09/25/20 09/25/20 09/25/20 06:34 06:39 06:44 Temperature Pulse Rate 96 H 91 H 86 Blood Pressure 147/87 O2 Sat by Pulse 94 99 99 Oximetry 09/25/20 09/25/20 09/25/20 06:49 06:54 06:59 Temperature Pulse Rate 89 87 85 Blood Pressure O2 Sat by Pulse 98 99 98 Oximetry 09/25/20 09/25/20 09/25/20 07:04 07:05 07:09 Temperature Pulse Rate 85 87 89 Blood Pressure 140/88 O2 Sat by Pulse 96 98 Oximetry 09/25/20 09/25/20 09/25/20 07:14 07:19 07:24 Temperature Pulse Rate 93 H 97 H 97 H Blood Pressure O2 Sat by Pulse 99 98 98 Oximetry 09/25/20 09/25/20 09/25/20 07:25 07:29 07:34 Temperature 97.8 F Pulse Rate 93 H 96 H Blood Pressure 171/97 O2 Sat by Pulse 99 99 Oximetry 09/25/20 09/25/20 09/25/20 07:39 07:44 07:48 Temperature Pulse Rate 95 H 97 H 93 H Blood Pressure 140/96 O2 Sat by Pulse 99 99 93 Oximetry 09/25/20 09/25/20 09/25/20 07:49 07:54 07:59 Temperature Pulse Rate 92 H 92 H 93 H Blood Pressure O2 Sat by Pulse 98 98 99 Oximetry 09/25/20 09/25/20 09/25/20 08:04 08:09 08:14 Temperature Pulse Rate 92 H 93 H 89 Blood Pressure 147/95 155/96 O2 Sat by Pulse 98 98 96 Oximetry 09/25/20 09/25/20 09/25/20 08:19 08:24 08:29 Temperature Pulse Rate 94 H 94 H 94 H Blood Pressure O2 Sat by Pulse 99 98 98 Oximetry 09/25/20 09/25/20 09/25/20 08:34 08:39 08:44 Temperature Pulse Rate 96 H 100 H 89 Blood Pressure 157/98 O2 Sat by Pulse 98 97 97 Oximetry 09/25/20 09/25/20 09/25/20 08:49 08:54 08:59 Temperature Pulse Rate 91 H 91 H 90 Blood Pressure O2 Sat by Pulse 98 98 98 Oximetry 09/25/20 09/25/20 09/25/20 09:04 09:09 09:14 Temperature Pulse Rate 98 H 94 H 94 H Blood Pressure 155/96 O2 Sat by Pulse 98 98 98 Oximetry 09/25/20 09/25/20 09/25/20 09:19 09:24 09:29 Temperature Pulse Rate 91 H 89 95 H Blood Pressure O2 Sat by Pulse 97 97 100 Oximetry 09/25/20 09/25/20 09/25/20 09:34 09:35 09:39 Temperature Pulse Rate 102 H 102 H 101 H Blood Pressure 184/111 174/106 O2 Sat by Pulse 99 99 Oximetry 09/25/20 09/25/20 09/25/20 09:44 09:49 09:54 Temperature Pulse Rate 103 H 103 H 98 H Blood Pressure O2 Sat by Pulse 99 98 99 Oximetry 09/25/20 09/25/20 09/25/20 09:59 10:01 10:04 Temperature Pulse Rate 101 H 96 H 98 H Blood Pressure 182/105 182/105 O2 Sat by Pulse 99 98 Oximetry 09/25/20 09/25/20 09/25/20 10:09 10:14 10:19 Temperature Pulse Rate 99 H 107 H 101 H Blood Pressure 182/105 O2 Sat by Pulse 98 98 98 Oximetry 09/25/20 09/25/20 09/25/20 10:24 10:29 10:31 Temperature Pulse Rate 98 H 102 H 100 H Blood Pressure 142/86 O2 Sat by Pulse 97 98 Oximetry 09/25/20 09/25/20 09/25/20 10:34 10:39 10:44 Temperature Pulse Rate 102 H 100 H 105 H Blood Pressure O2 Sat by Pulse 98 98 98 Oximetry 09/25/20 09/25/20 09/25/20 10:49 10:54 10:59 Temperature Pulse Rate 101 H 103 H 104 H Blood Pressure O2 Sat by Pulse 98 98 98 Oximetry 09/25/20 09/25/20 09/25/20 11:01 11:04 11:09 Temperature Pulse Rate 99 H 104 H 104 H Blood Pressure 146/89 O2 Sat by Pulse 98 98 Oximetry 09/25/20 09/25/20 09/25/20 11:14 11:19 11:24 Temperature Pulse Rate 99 H 101 H 98 H Blood Pressure O2 Sat by Pulse 98 98 99 Oximetry 09/25/20 09/25/20 09/25/20 11:29 11:31 11:34 Temperature Pulse Rate 99 H 96 H 99 H Blood Pressure 137/85 O2 Sat by Pulse 97 97 Oximetry 09/25/20 09/25/20 09/25/20 11:39 11:44 11:49 Temperature Pulse Rate 100 H 103 H 102 H Blood Pressure O2 Sat by Pulse 98 99 99 Oximetry 09/25/20 09/25/20 09/25/20 11:54 11:59 12:01 Temperature Pulse Rate 109 H 100 H 108 H Blood Pressure 133/84 O2 Sat by Pulse 99 99 Oximetry 09/25/20 09/25/20 09/25/20 12:04 12:09 12:14 Temperature Pulse Rate 99 H 101 H 99 H Blood Pressure O2 Sat by Pulse 99 98 98 Oximetry 09/25/20 09/25/20 09/25/20 12:19 12:24 12:29 Temperature Pulse Rate 108 H 95 H 98 H Blood Pressure O2 Sat by Pulse 97 98 99 Oximetry 09/25/20 09/25/20 09/25/20 12:31 12:34 12:39 Temperature Pulse Rate 98 H 103 H 103 H Blood Pressure 133/87 O2 Sat by Pulse 92 97 99 Oximetry 09/25/20 09/25/20 09/25/20 12:44 12:49 12:54 Temperature Pulse Rate 106 H 102 H 99 H Blood Pressure O2 Sat by Pulse 98 99 98 Oximetry 09/25/20 09/25/20 09/25/20 12:59 13:01 13:04 Temperature Pulse Rate 98 H 95 H 96 H Blood Pressure 145/83 O2 Sat by Pulse 98 98 Oximetry 09/25/20 09/25/20 09/25/20 13:09 13:14 13:19 Temperature Pulse Rate 97 H 97 H 95 H Blood Pressure O2 Sat by Pulse 98 98 98 Oximetry 09/25/20 09/25/20 09/25/20 13:24 13:29 13:31 Temperature Pulse Rate 98 H 95 H 95 H Blood Pressure 142/84 O2 Sat by Pulse 99 99 Oximetry 09/25/20 09/25/20 09/25/20 13:34 13:39 13:44 Temperature Pulse Rate 98 H 98 H 97 H Blood Pressure O2 Sat by Pulse 99 98 98 Oximetry 09/25/20 09/25/20 09/25/20 13:49 13:54 13:59 Temperature Pulse Rate 99 H 103 H 98 H Blood Pressure O2 Sat by Pulse 100 100 99 Oximetry 09/25/20 09/25/20 09/25/20 14:01 14:04 14:09 Temperature Pulse Rate 97 H 98 H 99 H Blood Pressure 141/89 O2 Sat by Pulse 99 99 Oximetry 09/25/20 09/25/20 09/25/20 14:14 14:19 14:24 Temperature Pulse Rate 99 H 98 H 98 H Blood Pressure O2 Sat by Pulse 98 98 99 Oximetry 09/25/20 09/25/20 09/25/20 14:29 14:31 14:34 Temperature Pulse Rate 99 H 101 H 96 H Blood Pressure 141/91 O2 Sat by Pulse 99 100 Oximetry 09/25/20 09/25/20 09/25/20 14:39 14:41 14:44 Temperature 98.5 F Pulse Rate 101 H 98 H Blood Pressure O2 Sat by Pulse 100 98 Oximetry 09/25/20 09/25/20 09/25/20 14:49 14:54 14:59 Temperature Pulse Rate 100 H 98 H 98 H Blood Pressure O2 Sat by Pulse 98 99 98 Oximetry 09/25/20 09/25/20 09/25/20 15:01 15:04 15:09 Temperature Pulse Rate 96 H 97 H 99 H Blood Pressure 125/83 O2 Sat by Pulse 99 98 Oximetry 09/25/20 09/25/20 09/25/20 15:14 15:19 15:24 Temperature Pulse Rate 98 H 100 H 98 H Blood Pressure O2 Sat by Pulse 99 99 99 Oximetry 09/25/20 09/25/20 09/25/20 15:29 15:31 15:33 Temperature Pulse Rate 97 H 98 H 96 H Blood Pressure 136/88 O2 Sat by Pulse 97 91 Oximetry 09/25/20 09/25/20 09/25/20 15:34 15:39 15:44 Temperature Pulse Rate 96 H 95 H 100 H Blood Pressure O2 Sat by Pulse 99 98 99 Oximetry 09/25/20 09/25/20 09/25/20 15:49 15:54 15:59 Temperature Pulse Rate 98 H 95 H 97 H Blood Pressure O2 Sat by Pulse 98 97 100 Oximetry 09/25/20 09/25/20 09/25/20 16:01 16:05 16:10 Temperature Pulse Rate 90 92 H 93 H Blood Pressure 135/84 O2 Sat by Pulse 97 97 Oximetry 09/25/20 09/25/20 09/25/20 16:15 16:17 16:20 Temperature Pulse Rate 96 H 66 94 H Blood Pressure O2 Sat by Pulse 98 71 L 99 Oximetry 09/25/20 09/25/20 16:25 16:30 Temperature Pulse Rate 93 H 93 H Blood Pressure O2 Sat by Pulse 98 97 Oximetry - Exam Cardiovascular: Regular rate Lungs: Clear to auscultation Abdomen: Present: normal appearance Uterus: Present: normal FHR: category 1 Extremities: edema - Labs Labs: Abnormal Labs 09/24/20 09/24/20 09/24/20 16:50 17:07 17:07 WBC 12.7 H RDW 15.6 H Creatinine 0.5 L Magnesium Urine WBC (Auto) 7.0 H 09/25/20 09/25/20 03:56 09:09 WBC RDW Creatinine Magnesium 4.60 H 4.60 H Urine WBC (Auto) Laboratory Results - last 24 hr 09/24/20 09/24/20 09/24/20 09:27 16:50 17:07 WBC 12.7 H RBC 4.28 Hgb 11.8 Hct 36.4 MCV 85 MCH 28 MCHC 32 RDW 15.6 H Plt Count 191 Creatinine Estimated GFR Uric Acid Magnesium AST ALT Lactate Dehydrogenase Urine Color Yellow Urine Turbidity Slightly-cloudy Urine pH 6.0 Ur Specific [place] 1.023 Urine Protein 30 mg/dl Urine Glucose (UA) Neg Urine Ketones Neg Urine Blood Sm Urine Nitrite Neg Urine Bilirubin Neg Urine Urobilinogen < 2.0 Ur Leukocyte Esterase Tr Urine WBC (Auto) 7.0 H Urine RBC (Auto) 12.0 U Epithel Cells (Auto) 11.0 Urine Bacteria (Auto) 2+ Urine Mucus 3+ Coronavirus (PCR) Negative Blood Type Antibody Screen 09/24/20 09/24/20 09/25/20 17:07 19:40 03:56 WBC RBC Hgb Hct MCV MCH MCHC RDW Plt Count Creatinine 0.5 L Estimated GFR > 60 Uric Acid 5.8 Magnesium 4.60 H AST 12 ALT 8 Lactate Dehydrogenase 163 Urine Color Urine Turbidity Urine pH Ur Specific [place] Urine Protein Urine Glucose (UA) Urine Ketones Urine Blood Urine Nitrite Urine Bilirubin Urine Urobilinogen Ur Leukocyte Esterase Urine WBC (Auto) Urine RBC (Auto) U Epithel Cells (Auto) Urine Bacteria (Auto) Urine Mucus Coronavirus (PCR) Blood Type A POSITIVE Antibody Screen Negative 09/25/20 09:09 WBC RBC Hgb Hct MCV MCH MCHC RDW Plt Count Creatinine Estimated GFR Uric Acid Magnesium 4.60 H AST ALT Lactate Dehydrogenase Urine Color Urine Turbidity Urine pH Ur Specific [place] Urine Protein Urine Glucose (UA) Urine Ketones Urine Blood Urine Nitrite Urine Bilirubin Urine Urobilinogen Ur Leukocyte Esterase Urine WBC (Auto) Urine RBC (Auto) U Epithel Cells (Auto) Urine Bacteria (Auto) Urine Mucus Coronavirus (PCR) Blood Type Antibody Screen
[2020-09-25 17:00] LABS: Hematocrit 34.9 % (30.3-42.9); Hemoglobin 11.4 gm/dl (10.1-14.3); Mean Corpuscular HGB Conc 33 % (30-34); Mean Corpuscular Volume 84 fl (79-97); Platelet Count 209 K/mm3 (140-440); Red Blood Count 4.14 M/mm3 (3.65-5.03); Red Cell Distribution Width 16.1 % (13.2-15.2)
[2020-09-25] MEDS: MAGNESIUM SULFATE 40GM/1000ML 40 GM/1,000 ML BAG IV SCH (17:03)
[2020-09-25 17:18] LABS: Alanine Aminotransferase 8 units/L (7-56)
[2020-09-26] MEDS: hydrALAZINE 20 MG/1 ML INJ IV PRN ×4 (00:44→20:57)
[2020-09-26] MEDS ORDERED: NIFEdipine XL 30 MG TAB PO PRN (01:12)
--- NOTE | 2020-09-26 01:14 | Event Note ---
Date: 09/26/20 Called to assess BP, severe noted at 00:02. Nurse returned call with FU BP, Severe elevation reported. Hydralazine 5mg given. Repeat wnl. Patient denies symptoms per nursing report. Plan: -continue IOL for PreEcSF -cervidil to be removed 0200, switch to cytotec 25mcg po q 2 prn - status Cat I, reactive and reassuring for gestational age PreEcSF: -continue Magnesium for seizure prophylaxis -VS criteria updated to 160/110 for intervention -s/p labetalol 400mg po, hydralazine 5mg IV -plan for nifedipine 20 stat if additional severe noted
[2020-09-26] MEDS: BUTALB/ACETAMINOPHEN/CAFFEINE TAB PO PRN (02:43)
[2020-09-26] MEDS: miSOPROStol 25 MCG TAB PO SCH ×4 (03:47→15:15)
[2020-09-26] MEDS: NIFEdipine*For Tocolysis only* 10 MG CAPSULE PO PRN ×2 (04:25→12:21)
[2020-09-26] MEDS: LACTATED RINGERS 1,000 ML IV SCH ×2 (06:32→15:52)
--- NOTE | 2020-09-26 08:32 | Progress Note ---
Assessment and Plan A: IUP at 31w2d s/p 2 doses of betamethasone at 29 wks; rescue dose given on 09/25/20; undergoing induction of labor Growth Restriction Preeclampsia with severe features on Labetalol 400 mg BID on magnesium sulfate for seizure prophylaxis Obesity P: Continue induction Closely monitor maternal and status Subjective - Subjective Date of service: 09/26/20 Principal diagnosis: PreeEclampsia with SF; obesity Interval history: Pt without complaints this morning. Fioricet helping with headaches. Feeling her contractions with misoprostol. Patient reports: movement normal, no new complaints, no contractions Objective - Vital Signs Vital Signs: Vital Signs - 12hr 09/25/20 09/25/20 09/25/20 20:35 20:40 20:45 Temperature Pulse Rate 92 H 96 H 92 H Respiratory Rate Blood Pressure Blood Pressure [Right] O2 Sat by Pulse 98 99 99 Oximetry 09/25/20 09/25/20 09/25/20 20:50 20:55 21:00 Temperature Pulse Rate 89 93 H 94 H Respiratory Rate Blood Pressure Blood Pressure [Right] O2 Sat by Pulse 99 98 99 Oximetry 09/25/20 09/25/20 09/25/20 21:01 21:05 21:10 Temperature Pulse Rate 91 H 92 H 91 H Respiratory Rate Blood Pressure 145/94 Blood Pressure [Right] O2 Sat by Pulse 98 98 Oximetry 09/25/20 09/25/20 09/25/20 21:15 21:20 21:25 Temperature Pulse Rate 93 H 94 H 93 H Respiratory Rate Blood Pressure Blood Pressure [Right] O2 Sat by Pulse 99 99 98 Oximetry 09/25/20 09/25/20 09/25/20 21:30 21:35 21:40 Temperature Pulse Rate 96 H 94 H 97 H Respiratory Rate Blood Pressure Blood Pressure [Right] O2 Sat by Pulse 99 98 97 Oximetry 09/25/20 09/25/20 09/25/20 21:45 21:50 22:26 Temperature Pulse Rate 95 H 99 H 86 Respiratory Rate Blood Pressure 166/97 Blood Pressure [Right] O2 Sat by Pulse 99 100 Oximetry 09/25/20 09/25/20 09/25/20 22:34 22:35 22:36 Temperature Pulse Rate 89 90 89 Respiratory Rate Blood Pressure 159/86 159/86 Blood Pressure [Right] O2 Sat by Pulse 98 Oximetry 09/25/20 09/25/20 09/25/20 22:41 22:46 22:51 Temperature Pulse Rate 90 90 88 Respiratory Rate Blood Pressure Blood Pressure [Right] O2 Sat by Pulse 99 99 98 Oximetry 09/25/20 09/25/20 09/25/20 22:56 23:01 23:02 Temperature Pulse Rate 88 86 86 Respiratory Rate Blood Pressure 161/93 Blood Pressure [Right] O2 Sat by Pulse 98 98 Oximetry 09/25/20 09/25/20 09/25/20 23:06 23:11 23:16 Temperature Pulse Rate 88 90 88 Respiratory Rate Blood Pressure Blood Pressure [Right] O2 Sat by Pulse 98 97 97 Oximetry 09/25/20 09/25/20 09/25/20 23:21 23:26 23:31 Temperature Pulse Rate 88 90 83 Respiratory Rate Blood Pressure Blood Pressure [Right] O2 Sat by Pulse 98 98 97 Oximetry 09/25/20 09/25/20 09/25/20 23:34 23:36 23:41 Temperature 98 F Pulse Rate 87 88 89 Respiratory 16 Rate Blood Pressure 159/89 Blood Pressure 159/89 [Right] O2 Sat by Pulse 97 98 97 Oximetry 09/25/20 09/25/20 09/25/20 23:46 23:51 23:56 Temperature Pulse Rate 90 84 87 Respiratory Rate Blood Pressure Blood Pressure [Right] O2 Sat by Pulse 97 97 96 Oximetry 09/26/20 09/26/20 09/26/20 00:01 00:02 00:06 Temperature Pulse Rate 90 84 84 Respiratory Rate Blood Pressure 161/97 Blood Pressure [Right] O2 Sat by Pulse 96 96 Oximetry 09/26/20 09/26/20 09/26/20 00:11 00:16 00:21 Temperature Pulse Rate 90 85 84 Respiratory Rate Blood Pressure Blood Pressure [Right] O2 Sat by Pulse 97 96 97 Oximetry 09/26/20 09/26/20 09/26/20 00:26 00:31 00:36 Temperature Pulse Rate 83 88 83 Respiratory Rate Blood Pressure Blood Pressure [Right] O2 Sat by Pulse 96 95 96 Oximetry 09/26/20 09/26/20 09/26/20 00:41 00:43 00:44 Temperature Pulse Rate 90 83 92 H Respiratory Rate Blood Pressure 172/101 172/101 Blood Pressure [Right] O2 Sat by Pulse 97 Oximetry 09/26/20 09/26/20 09/26/20 00:46 00:51 00:56 Temperature Pulse Rate 92 H 89 90 Respiratory Rate Blood Pressure Blood Pressure [Right] O2 Sat by Pulse 97 97 97 Oximetry 09/26/20 09/26/20 09/26/20 01:01 01:04 01:06 Temperature Pulse Rate 91 H 88 90 Respiratory Rate Blood Pressure 148/89 Blood Pressure [Right] O2 Sat by Pulse 97 96 Oximetry 09/26/20 09/26/20 09/26/20 01:11 01:17 01:19 Temperature Pulse Rate 90 87 87 Respiratory Rate Blood Pressure 155/93 Blood Pressure [Right] O2 Sat by Pulse 97 97 Oximetry 09/26/20 09/26/20 09/26/20 01:21 01:26 01:31 Temperature Pulse Rate 93 H 86 89 Respiratory Rate Blood Pressure Blood Pressure [Right] O2 Sat by Pulse 97 97 97 Oximetry 09/26/20 09/26/20 09/26/20 01:37 01:41 01:46 Temperature Pulse Rate 86 85 85 Respiratory Rate Blood Pressure Blood Pressure [Right] O2 Sat by Pulse 97 97 96 Oximetry 09/26/20 09/26/20 09/26/20 01:51 01:52 01:57 Temperature Pulse Rate 85 85 86 Respiratory Rate Blood Pressure 139/81 Blood Pressure [Right] O2 Sat by Pulse 97 97 Oximetry 09/26/20 09/26/20 09/26/20 02:02 02:06 02:11 Temperature Pulse Rate 86 88 88 Respiratory Rate Blood Pressure Blood Pressure [Right] O2 Sat by Pulse 97 96 96 Oximetry 09/26/20 09/26/20 09/26/20 02:17 02:21 02:22 Temperature Pulse Rate 86 88 88 Respiratory Rate Blood Pressure 137/77 Blood Pressure [Right] O2 Sat by Pulse 97 96 Oximetry 09/26/20 09/26/20 09/26/20 02:26 02:31 02:36 Temperature Pulse Rate 91 H 92 H 90 Respiratory Rate Blood Pressure Blood Pressure [Right] O2 Sat by Pulse 96 96 96 Oximetry 09/26/20 09/26/20 09/26/20 02:41 02:46 02:51 Temperature Pulse Rate 87 95 H 87 Respiratory Rate Blood Pressure Blood Pressure [Right] O2 Sat by Pulse 96 97 97 Oximetry 09/26/20 09/26/20 09/26/20 02:52 02:56 03:01 Temperature Pulse Rate 88 86 86 Respiratory Rate Blood Pressure 162/92 Blood Pressure [Right] O2 Sat by Pulse 97 97 Oximetry 09/26/20 09/26/20 09/26/20 03:04 03:06 03:11 Temperature Pulse Rate 88 85 88 Respiratory Rate Blood Pressure 149/85 Blood Pressure [Right] O2 Sat by Pulse 97 97 Oximetry 09/26/20 09/26/20 09/26/20 03:16 03:21 03:22 Temperature Pulse Rate 89 94 H 90 Respiratory Rate Blood Pressure 142/89 Blood Pressure [Right] O2 Sat by Pulse 98 98 Oximetry 09/26/20 09/26/20 09/26/20 03:27 03:31 03:36 Temperature Pulse Rate 95 H 87 88 Respiratory Rate Blood Pressure Blood Pressure [Right] O2 Sat by Pulse 98 97 97 Oximetry 09/26/20 09/26/20 09/26/20 03:41 03:46 03:51 Temperature Pulse Rate 89 89 90 Respiratory Rate Blood Pressure Blood Pressure [Right] O2 Sat by Pulse 97 98 96 Oximetry 09/26/20 09/26/20 09/26/20 03:52 03:56 04:01 Temperature Pulse Rate 88 91 H 90 Respiratory Rate Blood Pressure 145/93 Blood Pressure [Right] O2 Sat by Pulse 96 97 Oximetry 09/26/20 09/26/20 09/26/20 04:06 04:11 04:16 Temperature Pulse Rate 95 H 88 87 Respiratory Rate Blood Pressure Blood Pressure [Right] O2 Sat by Pulse 99 97 97 Oximetry 09/26/20 09/26/20 09/26/20 04:21 04:22 04:25 Temperature 97.8 F Pulse Rate 87 86 Respiratory 16 Rate Blood Pressure 178/85 Blood Pressure [Right] O2 Sat by Pulse 98 Oximetry 09/26/20 09/26/20 09/26/20 04:26 04:31 04:36 Temperature Pulse Rate 89 87 92 H Respiratory Rate Blood Pressure Blood Pressure [Right] O2 Sat by Pulse 97 96 97 Oximetry 09/26/20 09/26/20 09/26/20 04:41 04:43 04:46 Temperature Pulse Rate 89 84 88 Respiratory Rate Blood Pressure 141/81 Blood Pressure [Right] O2 Sat by Pulse 97 96 Oximetry 09/26/20 09/26/20 09/26/20 04:51 04:56 05:01 Temperature Pulse Rate 89 100 H 98 H Respiratory Rate Blood Pressure Blood Pressure [Right] O2 Sat by Pulse 97 97 95 Oximetry 09/26/20 09/26/20 09/26/20 05:06 05:11 05:14 Temperature Pulse Rate 93 H 91 H 90 Respiratory Rate Blood Pressure 127/65 Blood Pressure [Right] O2 Sat by Pulse 95 95 Oximetry 09/26/20 09/26/20 09/26/20 05:16 05:21 05:26 Temperature Pulse Rate 94 H 90 94 H Respiratory Rate Blood Pressure Blood Pressure [Right] O2 Sat by Pulse 94 95 95 Oximetry 09/26/20 09/26/20 09/26/20 05:31 05:36 05:41 Temperature Pulse Rate 92 H 93 H 91 H Respiratory Rate Blood Pressure Blood Pressure [Right] O2 Sat by Pulse 96 96 96 Oximetry 09/26/20 09/26/20 09/26/20 05:44 05:46 05:51 Temperature Pulse Rate 90 89 90 Respiratory Rate Blood Pressure 119/60 Blood Pressure [Right] O2 Sat by Pulse 95 96 Oximetry 09/26/20 09/26/20 09/26/20 05:56 06:01 06:06 Temperature Pulse Rate 88 89 94 H Respiratory Rate Blood Pressure Blood Pressure [Right] O2 Sat by Pulse 97 96 98 Oximetry 09/26/20 09/26/20 09/26/20 06:11 06:14 06:16 Temperature Pulse Rate 93 H 88 90 Respiratory Rate Blood Pressure 136/67 Blood Pressure [Right] O2 Sat by Pulse 97 97 Oximetry 09/26/20 09/26/20 09/26/20 06:21 06:26 06:31 Temperature Pulse Rate 92 H 87 89 Respiratory Rate Blood Pressure Blood Pressure [Right] O2 Sat by Pulse 98 97 98 Oximetry 09/26/20 09/26/20 09/26/20 06:36 06:42 06:44 Temperature Pulse Rate 91 H 86 85 Respiratory Rate Blood Pressure 131/76 Blood Pressure [Right] O2 Sat by Pulse 97 97 Oximetry 09/26/20 09/26/20 09/26/20 06:46 06:51 06:56 Temperature Pulse Rate 89 89 88 Respiratory Rate Blood Pressure Blood Pressure [Right] O2 Sat by Pulse 98 97 96 Oximetry 09/26/20 09/26/2021 07:01 07:06 07:11 Temperature Pulse Rate 91 H 86 91 H Respiratory Rate Blood Pressure Blood Pressure [Right] O2 Sat by Pulse 98 98 98 Oximetry 09/26/20 09/26/20 09/26/20 07:14 07:16 07:21 Temperature Pulse Rate 85 87 83 Respiratory Rate Blood Pressure 135/60 Blood Pressure [Right] O2 Sat by Pulse 97 96 Oximetry 09/26/20 09/26/20 09/26/20 07:26 07:31 07:36 Temperature Pulse Rate 82 86 84 Respiratory Rate Blood Pressure Blood Pressure [Right] O2 Sat by Pulse 98 97 97 Oximetry 09/26/20 09/26/20 09/26/20 07:41 07:44 07:46 Temperature Pulse Rate 85 84 86 Respiratory Rate Blood Pressure 120/51 Blood Pressure [Right] O2 Sat by Pulse 98 98 Oximetry 09/26/20 09/26/20 09/26/20 07:51 07:56 08:00 Temperature 98.7 F Pulse Rate 93 H 89 85 Respiratory 16 Rate Blood Pressure 142/93 Blood Pressure 143/93 [Right] O2 Sat by Pulse 98 99 97 Oximetry 09/26/20 09/26/20 09/26/20 08:01 08:06 08:11 Temperature Pulse Rate 89 84 81 Respiratory Rate Blood Pressure Blood Pressure [Right] O2 Sat by Pulse 97 99 98 Oximetry 09/26/20 09/26/20 09/26/20 08:13 08:16 08:21 Temperature Pulse Rate 81 84 86 Respiratory Rate Blood Pressure 148/94 Blood Pressure [Right] O2 Sat by Pulse 98 98 Oximetry 09/26/20 09/26/20 08:26 08:27 Temperature Pulse Rate 84 86 Respiratory Rate Blood Pressure 148/94 Blood Pressure [Right] O2 Sat by Pulse 97 Oximetry - Exam Breasts: deferred Abdomen: Present: soft (obese) Uterus: Present: normal (gravid ) FHR: auscultation normal Uterine Contraction Monitor Mode: External Uterine Contraction Pattern: Irregular Uterine Tone Measurement Phase: Resting - Labs Labs: Abnormal Labs 09/24/20 09/24/20 09/24/20 16:50 17:07 17:07 WBC 12.7 H RDW 15.6 H Creatinine 0.5 L Magnesium Urine WBC (Auto) 7.0 H 09/25/20 09/25/2009/25/21 03:56 09:09 15:58 WBC 13.5 H RDW 16.1 H Creatinine Magnesium 4.60 H 4.60 H Urine WBC (Auto) 09/25/20 09/25/20 09/25/20 16:19 16:19 21:41 WBC RDW Creatinine 0.5 L Magnesium 5.40 H 5.50 H Urine WBC (Auto) 09/26/20 04:06 WBC RDW Creatinine Magnesium 6.40 H Urine WBC (Auto) Laboratory Results - last 24 hr 09/24/20 09/25/20 09/25/20 09:27 09:09 15:58 WBC 13.5 H RBC 4.14 Hgb 11.4 Hct 34.9 MCV 84 MCH 28 MCHC 33 RDW 16.1 H Plt Count 209 Creatinine Estimated GFR Uric Acid Magnesium 4.60 H AST ALT Lactate Dehydrogenase Coronavirus (PCR) Negative 09/25/20 09/25/20 09/25/20 16:19 16:19 21:41 WBC RBC Hgb Hct MCV MCH MCHC RDW Plt Count Creatinine 0.5 L Estimated GFR > 60 Uric Acid 5.0 Magnesium 5.40 H 5.50 H AST 11 ALT 8 Lactate Dehydrogenase 161 Coronavirus (PCR) 09/26/20 04:06 WBC RBC Hgb Hct MCV MCH MCHC RDW Plt Count Creatinine Estimated GFR Uric Acid Magnesium 6.40 H AST ALT Lactate Dehydrogenase Coronavirus (PCR)
[2020-09-26] MEDS ORDERED: MAGNESIUM SULFATE 40GM/1000ML 40 GM/1,000 ML BAG IV SCH ×2 (09:00→12:00)
[2020-09-26] MEDS: PRENATAL VIT27-FE FUMARATE-FOLIC ACID VIT TAB PO SCH (10:18)
[2020-09-26] MEDS ORDERED: BUTORPHANOL 2 MG/1 ML INJ IV PRN (11:10)
[2020-09-26] MEDS ORDERED: fentaNYL 100 MCG/2 ML INJ IV ONE (18:09)
[2020-09-26] MEDS ORDERED: OXYTOCIN DRIP 30,000 MILLIUNITS/500 ML BAG IV ONE (18:43)
[2020-09-26] MEDS: OXYTOCIN DRIP 30 UNITS/500 ML BAG IV SCH (21:11)
[2020-09-27] MEDS: LACTATED RINGERS 1,000 ML IV SCH ×2 (02:15→11:13)
[2020-09-27] MEDS: hydrALAZINE 20 MG/1 ML INJ IV PRN ×2 (03:22→11:22)
[2020-09-27] MEDS: NIFEdipine*For Tocolysis only* 10 MG CAPSULE PO PRN (06:24)
[2020-09-27] MEDS: BUTALB/ACETAMINOPHEN/CAFFEINE TAB PO PRN (06:30)
--- NOTE | 2020-09-27 09:08 | Event Note ---
Date: 09/27/20 HD#3 of induction for severe preeclampsia. Cervix remains 1cm intact. On low dose pitocin. Will start to increase. Cook catheter placed.
[2020-09-27] MEDS ORDERED: fentaNYL 100 MCG/2 ML INJ IV PRN (09:30)
[2020-09-27] MEDS: PRENATAL VIT27-FE FUMARATE-FOLIC ACID VIT TAB PO SCH (09:32)
[2020-09-27] MEDS ORDERED: NALOXONE 2 MG/2 ML INJ IV PRN (12:57)
[2020-09-27] MEDS ORDERED: ePHEDrine SULFATE 50 MG/1 ML INJ IV PRN (12:57)
--- NOTE | 2020-09-27 12:57 | Anesthesia Consultation ---
Anesthesia Consult and Med Hx Date of service: 09/27/20 - Airway Anesthetic Teeth Evaluation: Good, Caps ROM Head & Neck: Adequate Mental/Hyoid Distance: Adequate Mallampati Class: Class II Intubation Access Assessment: Probably Good - Pulmonary Exam CTA: Yes - Cardiac Exam Cardiac Exam: RRR - Pre-Operative Health Status ASA Pre-Surgery Classification: ASA3 Proposed Anesthetic Plan: Epidural - Pulmonary Hx Asthma: No COPD: No Hx Pneumonia: No - Cardiovascular System Hx Hypertension: Yes - Central Nervous System Hx Seizures: No Hx Psychiatric Problems: No - Endocrine Hx Renal Disease: No Hx End Stage Renal Disease: No Hx Hypothyroidism: No Hx Hyperthyroidism: No - Hematic Hx Anemia: No Hx Sickle Cell Disease: No - Other Systems Hx Alcohol Use: No Hx Obesity: Yes
[2020-09-27] MEDS ORDERED: fentaNYL-BUPIV 2 MCG/ML-0.125% 200 MCG/100 ML BAG EPIDURAL SCH (13:00)
--- NOTE | 2020-09-27 14:22 | Progress Note ---
Labor Epidural - Labor Epidural Start Time: 13:55 Stop Time: 14:01 Performed by:: TUYET WORKMAN Procedure: Patient is requesting epidural for labor pain. H&P, and labs reviewed. Procedure explained, questions answered, consent obtained. Patient in sitting position with blood pressure cuff and pulse ox on and working. Timeout performed immediately before start of procedure. Sterile chlorahexadine 0.5% prep/drape. 3 mL 1% lidocaine skin wheal at L[3]-L[4]. 18-gauge Tuohy epidural needle advanced to [id number] with saline at [7] cm. Epidural catheter advanced to 15 cm, negative aspiration for blood, positive for csf, de xmedetomidine 5 mcg administered. Sterile steri-strips and tegaderm applied, followed by tape reinforcement. Patient tolerated procedure well.
[2020-09-27] MEDS: OXYTOCIN DRIP 30 UNITS/500 ML BAG IV SCH (20:49)
[2020-09-28 00:18] LABS: Bilirubin,Urine NEG (Negative); Blood,Urine LG (Negative); Color,Urine Yellow (Yellow); Mucus,Urine FEW /HPF; Sperm,Urine FEW /HPF (NP); Urobilinogen,Urine < 2.0 mg/dL (<2.0); WBC,Urine > 182.0 /HPF (0.0-6.0)
[2020-09-28] MEDS ORDERED: GENTAMICIN/NS 80 MG/100 ML 100 ML IV ONE (00:30)
[2020-09-28] MEDS: ACETAMINOPHEN 325 MG TAB PO PRN (00:36)
[2020-09-28] MEDS ORDERED: AMPICILLIN/NS 2 GM/100 ML 2 GM/100 ML BAG IV SCH (01:00)
[2020-09-28] MEDS ORDERED: LANOLIN/ZINC/DIMETHICONE (LANSINOH) 7 GM TP PRN (02:11)
[2020-09-28] MEDS ORDERED: diphenhydrAMINE 25 MG CAP PO PRN (02:11)
[2020-09-28] MEDS ORDERED: PROMETHAZINE 25 MG TAB PO PRN (02:11)
[2020-09-28] MEDS ORDERED: WITCH HAZEL/ GLYCERIN PAD TP PRN (02:11)
[2020-09-28] MEDS ORDERED: ONDANSETRON 4 MG/2 ML INJ IV PRN (02:11)
[2020-09-28] MEDS ORDERED: PROMETHAZINE 25 MG RECT SUPP PR PRN (02:11)
[2020-09-28] MEDS ORDERED: MAGNESIUM HYDROXIDE (MOM) ORAL LIQD UDC PO PRN (02:11)
[2020-09-28] MEDS ORDERED: HYDROcodone/ACETAMINOPHEN 5-325 MG TAB PO PRN (02:11)
--- NOTE | 2020-09-28 02:11 | Procedure Note ---
OB Delivery Note - Delivery Date of Delivery: 09/28/20 Surgeon: HUSSEIN BENAVIDEZ Estimated blood loss: <100cc - Vaginal Delivery presentation: vertex Delivery position: OA Intrapartum events: labor-<37 weeks Delivery induction: AROM Delivery augmentation: pitocin Delivery monitor: external FHT, external uterine, internal uterine Route of delivery: Delivery placenta: spontaneous Delivery cord: 3 umbilical vessels Episiotomy: none Delivery laceration: none Anesthesia: epidural Delivery comments: The patient had rapid progression from 4 cm to complete complete +2. The patient progressed from 4 cm to complete complete +1 and had a spontaneous vaginal delivery of a liveborn female with a weight of 2 pounds 10 ounces. The placenta delivered spontaneously intact with evidence of calcifications. No lacerations were noted estimated blood loss was less than 100 mL - A Infant Gender: Female (Weight 2 pounds 10 ounces)
[2020-09-28] MEDS: IBUPROFEN 600 MG TAB PO SCH ×2 (05:59→19:45)
[2020-09-28] MEDS: hydrALAZINE 20 MG/1 ML INJ IV PRN (08:16)
[2020-09-28] MEDS: LACTATED RINGERS 1,000 ML IV SCH ×2 (09:38→19:44)
[2020-09-28] MEDS: PRENATAL VIT27-FE FUMARATE-FOLIC ACID VIT TAB PO SCH (10:56)
--- NOTE | 2020-09-28 12:09 | Progress Note ---
Assessment and Plan - Patient Problems (1) Severe pre-eclampsia Current Visit: Yes Status: Acute Plan to address problem: Patient doing well Complete 24 hours magnesium therapy and then transferred to mother-baby unit Subjective - Subjective Date of service: 09/28/20 Principal diagnosis: PreeEclampsia with SF; obesity Interval history: Patient is status post a spontaneous vaginal delivery this a.m. She is currently receiving magnesium sulfate therapy 24 hours postdelivery for seizure prophylaxis. She is currently without any complaints and has had decrease in her temperature and is currently afebrile. She denies any associated symptoms Patient reports: appetite normal, voiding normally, pain well controlled [place]: in NICU Objective - Vital Signs Latest vital signs: Vital Signs Temp Pulse Resp BP BP Pulse Ox 09/28/20 12:07 100 H 97 09/28/20 12:02 100 H 98 09/28/20 11:57 99 H 99 09/28/20 11:52 98 H 143/76 98 09/28/20 11:47 98 H 99 09/28/20 11:42 98 H 99 09/28/20 11:37 92 H 98 09/28/20 11:32 100 H 99 09/28/20 11:27 105 H 99 09/28/20 11:22 104 H 98 09/28/20 11:18 94 H 132/73 09/28/20 11:17 95 H 97 09/28/20 11:12 91 H 98 09/28/20 11:07 93 H 98 09/28/20 11:02 96 H 99 09/28/20 11:01 104 H 145/66 09/28/20 10:57 97 H 97 09/28/20 10:56 91 H 145/66 09/28/20 10:52 92 H 96 09/28/20 10:47 101 H 96 09/28/20 10:42 98 H 97 09/28/20 10:41 89 94 09/28/20 10:37 92 H 96 09/28/20 10:32 96 H 97 09/28/20 10:27 98 H 97 09/28/20 10:22 95 H 97 09/28/20 10:18 93 H 121/63 09/28/20 10:17 95 H 97 09/28/20 10:12 92 H 97 09/28/20 10:07 100 H 98 09/28/20 10:02 94 H 98 09/28/20 09:57 92 H 98 09/28/20 09:52 92 H 99 09/28/20 09:47 101 H 99 09/28/20 09:42 108 H 98 09/28/20 09:37 109 H 98 09/28/20 09:32 112 H 98 09/28/20 09:27 101 H 96 09/28/20 09:22 98 H 96 09/28/20 09:18 106 H 139/80 09/28/20 09:17 107 H 98 09/28/20 09:12 106 H 98 09/28/20 09:07 108 H 98 09/28/20 09:02 106 H 98 09/28/20 08:57 103 H 98 09/28/20 08:52 105 H 98 09/28/20 08:47 101 H 98 09/28/20 08:42 100 H 98 09/28/20 08:37 96 H 98 09/28/20 08:32 102 H 99 09/28/20 08:27 99 H 99 09/28/20 08:22 96 H 99 09/28/20 08:18 96 H 145/78 09/28/20 08:17 103 H 98 06 08:16 97 H 179/98 0306 08:12 100 H 99 09/28/20 08:07 110 H 98 09/28/20 08:02 98.3 F 102 H 18 179/98 179/98 98 06/ 07:57 102 H 99 09/28/20 07:52 103 H 99 06 07:47 106 H 99 09/28/20 07:42 103 H 99 06 07:37 112 H 98 06 07:32 104 H 99 06 07:27 104 H 98 06 07:22 106 H 99 0306 07:18 100 H 179/88 06 07:17 100 H 99 0306 07:12 100 H 99 06 07:07 97 H 99 0306 07:02 101 H 97 06 06:57 99 H 99 0306 06:52 100 H 98 09/28/20 06:47 98 H 98 09/28/20 06:42 102 H 98 09/28/20 06:37 101 H 100 09/28/20 06:32 101 H 98 09/28/20 06:30 98.9 F 16 09/28/20 06:27 101 H 99 09/28/20 06:22 100 H 98 09/28/20 06:18 102 H 139/90 09/28/20 06:17 102 H 98 09/28/20 06:12 102 H 97 09/28/20 06:07 100 H 98 09/28/20 06:01 110 H 97 09/28/20 05:56 105 H 99 09/28/20 05:51 100 H 98 09/28/20 05:46 100 H 99 09/28/20 05:41 98 H 99 09/28/20 05:36 100 H 98 09/28/20 05:31 110 H 98 09/28/20 05:26 101 H 97 09/28/20 05:21 102 H 99 09/28/20 05:16 99 H 99 09/28/20 05:13 96 H 120/64 09/28/20 05:11 97 H 98 09/28/20 05:06 100 H 98 09/28/20 05:01 111 H 99 09/28/20 04:56 102 H 98 09/28/20 04:51 102 H 99 09/28/20 04:46 109 H 98 09/28/20 04:43 99 H 134/68 09/28/20 04:41 103 H 98 09/28/20 04:36 102 H 98 09/28/20 04:31 100 H 98 09/28/20 04:26 102 H 98 09/28/20 04:21 108 H 98 09/28/20 04:16 107 H 98 09/28/20 04:13 100 H 165/95 09/28/20 04:11 104 H 97 09/28/20 04:06 107 H 97 09/28/20 04:01 107 H 97 09/28/20 03:56 106 H 98 09/28/20 03:51 106 H 98 09/28/20 03:46 105 H 98 09/28/20 03:43 107 H 155/86 09/28/20 03:41 108 H 98 09/28/20 03:36 108 H 98 09/28/20 03:31 109 H 98 03/06/21 03:26 108 H 98 09/28/20 03:21 111 H 97 09/28/20 03:16 108 H 97 09/28/20 03:13 107 H 138/80 09/28/20 03:11 111 H 96 09/28/20 03:06 110 H 98 09/28/20 03:01 107 H 97 09/28/20 02:56 112 H 97 09/28/20 02:51 114 H 97 09/28/20 02:46 111 H 97 09/28/20 02:43 108 H 149/93 09/28/20 02:41 108 H 97 09/28/20 02:36 109 H 97 09/28/20 02:31 110 H 98 09/28/20 02:26 108 H 97 09/28/20 02:21 109 H 97 09/28/20 02:16 111 H 97 09/28/20 02:13 111 H 137/79 09/28/20 02:11 114 H 97 09/28/20 02:06 116 H 98 09/28/20 02:01 109 H 98 09/28/20 01:56 112 H 98 09/28/20 01:51 107 H 98 09/28/20 01:46 111 H 98 09/28/20 01:45 100.2 F H 18 09/28/20 01:43 114 H 145/82 09/28/20 01:41 113 H 97 09/28/20 01:36 118 H 98 09/28/20 01:31 115 H 100 09/28/20 01:26 115 H 99 09/28/20 01:21 117 H 97 09/28/20 01:16 116 H 97 09/28/20 01:13 111 H 136/72 09/28/20 01:11 113 H 97 09/28/20 01:06 114 H 97 09/28/20 01:01 117 H 97 09/28/20 00:56 116 H 99 09/28/20 00:51 125 H 98 09/28/20 00:46 111 H 98 09/28/20 00:44 111 H 141/68 09/28/20 00:41 119 H 98 09/28/20 00:36 113 H 98 09/28/20 00:31 114 H 97 09/28/20 00:26 118 H 97 03/06/21 00:21 115 H 97 09/28/20 00:16 115 H 97 09/28/20 00:13 109 H 131/71 09/28/20 00:11 109 H 96 09/28/20 00:06 111 H 96 09/28/20 00:01 110 H 96 09/28/20 00:00 101.7 F H 18 09/27/20 23:56 109 H 97 09/27/20 23:51 106 H 97 09/27/20 23:46 107 H 97 09/27/20 23:43 107 H 136/72 09/27/20 23:41 109 H 97 09/27/20 23:36 106 H 97 09/27/20 23:31 105 H 96 09/27/20 23:26 105 H 96 09/27/20 23:21 109 H 96 09/27/20 23:16 103 H 97 09/27/20 23:14 100 H 132/65 09/27/20 23:11 105 H 98 09/27/20 23:06 104 H 98 09/27/20 23:01 104 H 98 09/27/20 22:56 96 H 98 09/27/20 22:51 103 H 98 09/27/20 22:46 97 H 98 09/27/20 22:43 98 H 143/77 09/27/20 22:41 104 H 100 09/27/20 22:36 100 H 99 09/27/20 22:31 104 H 98 09/27/20 22:26 98 H 99 09/27/20 22:21 102 H 100 09/27/20 22:16 94 H 100 09/27/20 22:13 99 H 152/79 09/27/20 22:11 96 H 100 09/27/20 22:06 98 H 100 09/27/20 22:01 96 H 100 09/27/20 21:56 96 H 100 09/27/20 21:51 98 H 100 09/27/20 21:46 97 H 100 09/27/20 21:41 96 H 100 09/27/20 21:36 99 H 100 09/27/20 21:31 96 H 100 09/27/20 21:26 93 H 100 09/27/20 21:21 98 H 98 09/27/20 21:16 105 H 96 03/05/21 21:13 99 H 111/74 0305/21 21:11 92 H 99 0305/21 21:06 96 H 99 0305/ 21:01 95 H 98 0305/ 21:00 98.8 F 16 05/21 20:56 95 H 100 05/21 20:51 90 99 03/05/21 20:46 95 H 98 /05/21 20:44 90 128/80 05/21 20:41 90 98 03/05/21 20:36 91 H 99 05/21 20:31 88 100 /05/21 20:26 86 99 /05/21 20:21 95 H 99 /05/21 20:16 83 99 05/21 20:13 82 150/91 03/05/21 20:11 84 100 05/21 20:06 85 99 03/05/21 20:01 85 99 05/21 19:56 89 99 05/21 19:51 87 99 05/21 19:46 86 99 03/05/21 19:43 87 147/86 05/ 19:41 86 98 03/05/21 19:36 93 H 100 05/21 19:31 98 H 99 05/21 19:26 90 99 05/21 19:25 98.2 F 16 0521 19:21 92 H 99 /05/21 19:16 91 H 98 /05/21 19:13 81 139/85 03/05/21 19:11 88 99 05/21 19:06 90 99 /05/21 19:05 94 0305/21 19:01 92 H 97 05/21 18:56 84 99 03/05/21 18:51 82 99 03/05/21 18:46 83 99 03/05/21 18:43 82 156/73 03/05/21 18:41 85 98 03/05/21 18:36 79 98 03/05/21 18:31 80 98 03/05/21 18:26 78 98 03/05/21 18:21 81 98 03/05/21 18:16 88 97 03/05/21 18:13 86 140/92 03/05/21 18:11 86 98 03/05/21 18:06 79 98 03/05/21 18:01 77 98 03/05/21 17:56 79 98 03/05/21 17:51 78 97 03/05/21 17:46 78 97 03/05/21 17:43 76 146/93 03/05/21 17:41 86 98 03/05/21 17:36 79 97 03/05/21 17:31 79 98 03/05/21 17:26 80 98 03/05/21 17:21 81 97 03/05/21 17:16 81 98 03/05/21 17:13 84 148/88 03/05/21 17:11 82 97 03/05/21 17:06 79 98 03/05/ 17:01 85 97 03/05/21 16:56 77 98 03/05/21 16:51 81 98 /05/21 16:46 76 97 03/05/21 16:43 90 147/84 05/21 16:41 86 97 03/05/21 16:36 79 97 03/05/21 16:31 78 97 03/05/21 16:26 77 97 03/05/21 16:21 86 98 03/05/21 16:16 76 97 03/05/21 16:13 75 131/77 03/05/21 16:11 75 97 03/05/21 16:06 78 97 03/05/21 16:01 75 97 03/05/21 15:56 78 97 03/05/21 15:51 79 97 03/05/21 15:46 75 97 03/05/21 15:43 71 131/78 03/05/21 15:41 79 97 03/05/21 15:36 77 97 03/05/21 15:31 82 97 03/05/21 15:26 89 98 03/05/21 15:21 92 H 98 03/05/21 15:16 94 H 98 03/05/21 15:11 88 98 03/05/21 15:09 85 131/73 03/05/21 15:06 88 98 03/05/21 15:04 88 137/78 03/05/21 15:01 89 98 03/05/21 14:59 88 135/80 03/05/21 14:56 92 H 97 03/05/21 14:54 88 140/84 03/05/ 14:51 86 97 05/ 14:49 85 138/76 03/05/ 14:46 89 97 05/ 14:44 91 H 138/82 05/ 14:41 94 H 97 05 14:39 88 139/85 05 14:36 91 H 98 05/ 14:34 85 145/90 05 14:31 95 H 98 05 14:30 88 140/87 05 14:26 86 97 05 14:24 87 158/87 09/27/20 14:21 88 98 05 14:19 85 154/92 05 14:16 85 98 05 14:14 81 156/94 09/27/20 14:11 96 H 97 05 14:09 87 164/90 05 14:06 85 98 05 14:03 88 172/96 05 14:00 86 99 /05/ 13:55 89 99 05/ 13:53 96 H 89 05 13:50 90 98 05/ 13:47 73 169/94 05 13:45 85 98 05/ 13:40 81 97 05/ 13:35 81 97 05/ 13:30 77 98 03/05/21 13:25 74 98 /05/ 13:20 71 98 /05/21 13:18 76 185/93 /05/ 13:15 80 98 03/05/21 13:10 76 98 /05/ 13:05 75 98 03/05/ 13:00 76 96 03/05/21 12:55 79 98 03/05/21 12:50 77 98 03/05/21 12:48 74 165/98 /05/21 12:45 87 96 /05/21 12:40 77 98 /05/21 12:35 83 99 03/05/21 12:30 77 96 03/05/21 12:25 73 98 03/05/21 12:20 78 98 03/05/21 12:18 75 170/94 03/05/21 12:15 74 98 09/27/20 12:10 82 98 Intake and Output 09/27/20 09/28/20 09/28/20 22:59 06:59 14:59 Intake Total 113.5 1000 Output Total 306 202 0065 Balance -186.5 50 -1050 Intake: IV 113.5 1000 Lactated Ringers 1,000 ml 1000 @ 125 mls/hr IV DIRECT [facility] Rx#:[id number] PITOCin/NS 30 UNIT/500ML 113.5 30 units In 500 ml @ 1 mls/hr IV TITR [facility] Rx#: [id number] Output: Urine 619 823 4178 Indwelling Catheter 017 538 3925 Other: Total, Output Amount 829 637 0165 Estimated Blood Loss 100 - Labs Labs: Abnormal lab results 09/27/20 09/27/20 09/27/20 Range/Units 14:20 15:27 16:00 Magnesium 4.40 H 4.40 H (1.7-2.3) mg/dL Urine WBC (Auto) (0.0-6.0) /HPF Membranes Rupture Positive A (Negative) 09/27/20 09/28/20 09/28/20 Range/Units 23:45 00:27 06:30 Magnesium 4.30 H 3.90 H (1.7-2.3) mg/dL Urine WBC (Auto) > 182.0 H (0.0-6.0) /HPF Membranes Rupture (Negative)
[2020-09-28 15:12] LABS: Hematocrit 30.7 % (30.3-42.9); Hemoglobin 10.1 gm/dl (10.1-14.3)
--- NOTE | 2020-09-28 15:35 | Post Anesthesia Evaluation ---
- Post Anesthesia Evaluation Patient Participated: Yes Airway Patent: Yes Stable Respiratory Function: Yes Nausea/Vomiting: No Temp > 96.8F: Yes Pain Manageable: Yes Adequeate Hydration: Yes Anesthesia Complications: No Block Receding Appropriately: Yes
[2020-09-29] MEDS: IBUPROFEN 600 MG TAB PO SCH ×3 (01:54→12:32)
[2020-09-29] MEDS: PRENATAL VIT27-FE FUMARATE-FOLIC ACID VIT TAB PO SCH (10:23)
--- NOTE | 2020-09-29 12:51 | Progress Note ---
Assessment and Plan - Patient Problems (1) Severe pre-eclampsia Current Visit: Yes Status: Acute Plan to address problem: will add procardia XL for bp control Subjective - Subjective Date of service: 09/29/20 Principal diagnosis: PreeEclampsia with SF; obesity Interval history: Patient desires to be discharged. Blood pressures remain labile. Patient denies any symptoms. Patient reports: appetite normal, voiding normally, pain well controlled [place]: in NICU Objective - Vital Signs Latest vital signs: Vital Signs Temp Pulse Resp BP BP Pulse Ox 09/29/20 12:26 87 154/107 100 09/29/20 10:23 92 H 180/99 09/29/20 06:18 18 09/29/20 04:25 98.7 F 93 H 20 147/85 96 09/29/20 01:54 18 09/29/20 01:53 98.7 F 93 H 18 146/86 99 09/29/20 01:32 96 H 146/86 97 09/29/20 01:27 97 H 97 09/29/20 01:22 96 H 98 09/29/20 01:18 96 H 140/82 93 09/29/20 01:17 97 H 97 09/29/20 01:12 95 H 98 09/29/20 01:07 94 H 99 09/29/20 01:02 96 H 98 09/29/20 00:57 98 H 98 09/29/20 00:52 94 H 98 09/29/20 00:47 93 H 98 09/29/20 00:42 97 H 98 09/29/20 00:37 98 H 98 09/29/20 00:32 101 H 98 09/29/20 00:27 98 H 98 09/29/20 00:22 94 H 97 09/29/20 00:18 94 H 136/79 09/29/20 00:17 98 H 94 09/29/20 00:12 96 H 97 09/29/20 00:07 102 H 98 09/29/20 00:02 89 97 09/28/20 23:57 97 H 97 09/28/20 23:52 95 H 97 09/28/20 23:47 97 H 98 09/28/20 23:42 104 H 96 09/28/20 23:36 97 H 97 09/28/20 23:32 100 H 98 09/28/20 23:27 95 H 97 03/06/21 23:22 95 H 97 09/28/20 23:18 98 H 147/85 93 09/28/20 23:17 100 H 98 09/28/20 23:12 95 H 98 09/28/20 23:07 104 H 97 09/28/20 23:02 97 H 97 09/28/20 22:57 94 H 97 09/28/20 22:51 95 H 97 09/28/20 22:47 92 H 97 09/28/20 22:42 95 H 98 09/28/20 22:37 99 H 97 09/28/20 22:32 95 H 97 09/28/20 22:27 113 H 97 09/28/20 22:25 114 H 91 09/28/20 22:22 108 H 97 09/28/20 22:20 110 H 90 09/28/20 22:17 89 141/83 98 09/28/20 22:12 98 H 99 09/28/20 22:07 98 H 98 09/28/20 22:04 95 H 141/83 09/28/20 22:03 96 H 141/83 94 09/28/20 22:02 92 H 98 09/28/20 21:57 99 H 97 09/28/20 21:52 92 H 98 09/28/20 21:47 100 H 97 09/28/20 21:42 92 H 99 09/28/20 21:37 102 H 97 09/28/20 21:32 99 H 97 09/28/20 21:27 99 H 98 09/28/20 21:22 99 H 97 09/28/20 21:18 94 H 138/81 09/28/20 21:17 91 H 94 09/28/20 21:16 90 98 09/28/20 21:12 92 H 98 09/28/20 21:07 94 H 98 09/28/20 21:02 98 H 99 09/28/20 20:57 98 H 98 09/28/20 20:52 100 H 97 09/28/20 20:47 95 H 97 09/28/20 20:42 95 H 98 09/28/20 20:37 95 H 98 09/28/20 20:32 94 H 98 09/28/20 20:27 89 98 09/28/20 20:23 98.4 F 94 H 18 151/78 100 09/28/20 20:22 98 H 98 09/28/20 20:18 94 H 151/78 94 06 20:17 98 H 98 09/28/20 20:11 102 H 99 09/28/20 20:07 99 H 98 09/28/20 19:47 96 H 98 09/28/20 19:43 98 H 97 09/28/20 19:38 92 H 98 09/28/20 19:33 94 H 97 09/28/20 19:28 99 H 99 09/28/20 19:23 91 H 98 09/28/20 19:18 86 140/81 98 09/28/20 19:13 91 H 98 09/28/20 19:08 95 H 98 09/28/20 19:03 97 H 98 09/28/20 18:58 102 H 98 09/28/20 18:53 93 H 98 09/28/20 18:48 95 H 98 09/28/20 18:43 96 H 98 09/28/20 18:38 97 H 99 09/28/20 18:33 93 H 98 09/28/20 18:28 90 98 09/28/20 18:23 97 H 97 09/28/20 18:18 93 H 131/103 97 09/28/20 18:13 91 H 99 09/28/20 18:08 96 H 97 09/28/20 18:03 91 H 98 09/28/20 17:58 98 H 98 09/28/20 17:53 96 H 98 09/28/20 17:48 92 H 98 09/28/20 17:43 89 98 06 17:38 91 H 98 06 17:33 89 98 06 17:28 88 97 06 17:23 84 97 06 17:18 90 107/58 99 06 17:13 86 98 06 17:08 87 98 06 17:03 86 98 06 16:57 89 98 06 16:52 86 97 /06 16:47 90 99 06 16:42 86 98 06 16:37 91 H 98 09/28/20 16:32 89 98 06 16:27 95 H 98 09/28/20 16:23 94 H 97 09/28/20 16:18 96 H 97 09/28/20 16:17 96 H 125/72 09/28/20 16:13 99.1 F 89 18 121/71 97 09/28/20 16:12 87 121/71 97 09/28/20 16:07 87 97 09/28/20 16:02 89 97 09/28/20 15:57 96 H 97 09/28/20 15:52 92 H 97 09/28/20 15:47 92 H 97 09/28/20 15:43 90 97 09/28/20 15:37 89 97 09/28/20 15:32 90 97 09/28/20 15:28 90 97 09/28/20 15:22 92 H 97 09/28/20 15:18 88 123/71 09/28/20 15:17 88 96 09/28/20 15:12 93 H 96 09/28/20 15:07 95 H 96 09/28/20 15:02 92 H 96 09/28/20 14:57 93 H 97 09/28/20 14:52 94 H 97 09/28/20 14:47 94 H 97 09/28/20 14:43 96 H 96 09/28/20 14:38 96 H 96 09/28/20 14:32 96 H 97 09/28/20 14:27 97 H 97 09/28/20 14:22 93 H 98 09/28/20 14:18 91 H 130/75 09/28/20 14:17 94 H 98 09/28/20 14:13 95 H 98 09/28/20 14:08 97 H 98 09/28/20 14:03 99 H 99 09/28/20 13:58 98 H 99 09/28/20 13:53 97 H 98 09/28/20 13:47 95 H 99 09/28/20 13:42 98 H 97 09/28/20 13:38 98 H 97 09/28/20 13:32 88 98 09/28/20 13:27 103 H 99 09/28/20 13:23 95 H 98 09/28/20 13:18 91 H 135/78 09/28/20 13:17 91 H 98 09/28/20 13:12 98 H 97 09/28/20 13:07 95 H 98 09/28/20 13:02 94 H 97 09/28/20 12:58 94 H 98 09/28/20 12:52 96 H 97 Intake and Output 09/28/20 09/29/20 09/29/20 22:59 06:59 14:59 Intake Total 1257.5 240 Output Total 450 800 Balance 807.5 -560 Intake: IV 757.5 Lactated Ringers 1,000 ml 757.5 @ 125 mls/hr IV DIRECT [facility] Rx#:[id number] Oral 500 240 Output: Urine 450 800 Indwelling Catheter 450 550 Void 250 Other: Total, Intake Amount 500 240 Total, Output Amount 175 250 - Labs Labs: Abnormal lab results 09/28/20 09/29/20 Range/Units 18:52 00:44 Magnesium 3.50 H 3.30 H (1.7-2.3) mg/dL
--- NOTE | 2020-09-29 12:56 | Discharge Summary ---
Providers - Providers Date of Admission: 09/24/20 19:02 Date of discharge: 09/29/20 Attending physician: MARGAUX PRADO 09/24/20 19:02 Consult to Physician [CONS] Routine Comment: Consulting Provider: HALEY REEVES Physician Instructions: Reason For Exam: IUP at 31 wks, preeclampsia, worsening BP 09/25/20 10:20 Consult to Physician [CONS] Urgent Comment: Consulting Provider: KARLA RYAN Physician Instructions: Reason For Exam: PTL/PRE E/IUGR/MAG/IOL Primary care physician: MARGAUX PRADO Hospitalization Reason for admission: induction of labor Delivery: Discharge diagnosis: delivery Hospital course: Patient admitted for preeclampsia. Patient underwent induction with a of a . complicated difficulty with control of blood pressures. Patient was adament to be discharge and even considering leaving AMA. Condition at discharge: Good Disposition: DC-01 TO HOME OR SELFCARE - Discharge Diagnoses (1) Severe pre-eclampsia Status: Acute Plan - Discharge Medications Prescriptions: labetaloL [Labetalol 200mg TAB] 400 mg PO BID #60 tablet Ibuprofen [Motrin] 800 mg PO Q8HR PRN #30 tablet PRN Reason: Pain , Severe (7-10) NIFEdipine XL [Procardia Xl] 60 mg PO QDAY #30 tablet - Provider Discharge Summary Activity: no sex for 6 weeks, no heavy lifting 4 weeks, no strenuous exercise Diet: routine Instructions: routine Additional instructions: [] Smoking cessation referral if applicable(refer to patient education folder for contact #) [] Refer to [facility] Booklet Call your doctor immediately for: * Fever > 100.5 * Heavy vaginal bleeding ( >1 pad per hour) * Severe persistent headache * Shortness of breath * Reddened, hot, painful area to leg or breast * schedule followup in 2 weeks for BP check - Follow up plan Forms: [facility] Discharge Summary
[2020-09-29] MEDS ORDERED: NIFEdipine XL 60 MG TAB PO SCH (13:30)
[2020-09-29] MEDS ORDERED: METHYLDOPA 250 MG TAB PO SCH (15:00)
[2020-09-29] MEDS ORDERED: hydrALAZINE 20 MG/1 ML INJ IV PRN (17:06)
[2020-09-29 19:29] VITALS: BP 159/98
== END 2020-09-29 19:45 | disposition home or self-care (01) | DRG 775 ==
LOC: TRG 15:26 → APU 15:27 → LD 18:02 → TRG 19:02 → OBSVTOIN 19:02 → LD 19:02 → OB 09-29 02:23
PROVIDERS: ADMIT Obstetrics & Gynecology; ATTEND Obstetrics & Gynecology
PROC: 3E0R3BZ Introduction of Anesthetic Agent into Spinal Canal, Percutaneous Approach (ICD-10-PCS; 2020-09-27)
PROC: 00HU33Z Insertion of Infusion Device into Spinal Canal, Percutaneous Approach (ICD-10-PCS; 2020-09-27)
PROC: 10E0XZZ Delivery of Products of Conception, External Approach (ICD-10-PCS; principal; 2020-09-28)
PROC: 10907ZC Drainage of Amniotic Fluid, Therapeutic from Products of Conception, Via Natural or Artificial Opening (ICD-10-PCS; 2020-09-28)
DX: O60.14X0 Preterm labor third trimester with preterm delivery third trimester, not applicable or unspecified (principal); O14.14 Severe pre-eclampsia complicating childbirth; Z3A.31 31 weeks gestation of pregnancy; Z37.0 Single live birth; O99.214 Obesity complicating childbirth; E66.01 Morbid (severe) obesity due to excess calories; Z20.822 Contact with and (suspected) exposure to COVID-19
CPT/HCPCS: 36415; 59025; 76816; 76819; 76820; 81001; 82565; 83615; 83735; 84112; 84450; 84460; 84550; 85014; 85018; 85027; 86850; 86900; 86901; 87116; 87591; 88307; 96360; 96361; 96365; 96366; 96367; 96368; G0378; J0290; J0360; J0702; J2590; J3010; J3475; J7120; U0003